=== PATIENT | female | born 1950 | race African-American/Black ===

== ENCOUNTER 2016-11-09 15:47 | Inpatient (IN) | payer MEDICARE, OTHER ==
[~2016-11-09] VITALS: Ht 172.7 cm; Wt 132.5 kg
[~2016-11-09 15:47] MED LIST: ALLO100T PO; AMLO10TA2 PO; ASPI-482 PO; CARV25TA2 PO; CETI10TA22 PO; DIPH25CA58 PO; EPOE20002 IJ; FURO20TA3 PO; INSU100V31 SQ; INSU100V8 SQ; LEVO137T2 PO; LOSA100T6 PO; OMEP20TA PO; PHEN100C PO; PHEN30CA PO
--- NOTE | 2016-11-09 16:21 | ED.ADGEN ---
Past Medical History Past Medical History: Diabetes-Type II, Renal Disease Alcohol Use: None Drug Use: None Adult General Chief Complaint Chief Complaint: ALTERED MENTAL STATUS HPI HPI Patient is a 66 year old -Indian insulin-dependent diabetes with end- stage renal disease with recent surgery of left forearm dialysis fistula with altered mental status. Patient's family member report patient's been confused with somnolence for the past 2 days. Symptoms started vaginally and have been progressive. Patient is not currently taking any of her home pain medications. She does not have a fever, cough, sore throat. She denies abdominal pain, urinary frequency urgency or dysuria. Denies headache, change in vision, dizziness or weakness or any strokelike symptom. Blood sugar checked by EMS or to arrival noted to be normal. Review of Systems Review of Systems ROS as per HPI. Current Medications Current Medications Current Medications Medications (Trade) Dose Ordered Sig/Jie Start Time Stop Time Status Last Admin Dose Admin Vancomycin HCl 1.25 gm/Sodium Chloride 250 ml @ 166.667 mls/hr 1X ONCE 11/09/16 18:15 11/09/16 18:26 DC Allergies Allergies Allergies Coded Allergies Type Severity Reaction Last Updated Verified Penicillins Allergy Intermediate 04/16/16 Yes Sulfa (Sulfonamide Antibiotics) Allergy Intermediate 04/16/16 Yes adhesive tape Allergy Intermediate 11/09/16 Yes codeine Allergy Intermediate 04/16/16 Yes doxycycline Allergy Intermediate 04/16/16 Yes Physical Exam Physical Exam Constitutional: Well developed, well nourished, no acute distress, non-toxic appearance. HENT: Normocephalic, atraumatic, bilateral external ears normal, oropharynx moist, no oral exudates, nose normal. Eyes: PERRL. Neck: Normal range of motion, no tenderness, supple. Cardiovascular:Heart rate regular rhythm, no murmur. Lungs & Thorax: Bilateral breath sounds clear to auscultation . Abdomen: Bowel sounds normal, soft, no tenderness. Skin: Warm, dry, appropriate for ethnicity. Back: No tenderness, no CVA tenderness. Extremities: Left forearm dialysis fistula surgical incision with light erythema and swelling surrounding surgical wound. Sutures are clean dry and intact. Neurologic: Alert and oriented X 2, normal motor function, normal sensory function, no focal deficits noted. Psychologic: Affect normal, judgement normal, mood normal. Current Patient Data Vital Signs Vital Signs Date Time Temp Pulse Resp B/P (MAP) Pulse Ox O2 Delivery O2 Flow Rate FiO2 11/09/16 17:44 72 20 184/79 (114) 95 Room Air 11/09/16 15:47 99.0 99.0 Lab Values Laboratory Tests Test 11/09/16 16:34 11/09/16 16:40 11/09/16 16:51 White Blood Count 7.4 x10^3/uL (4.0-11.0) Red Blood Count 2.76 x10^6/uL (3.50-5.40) L Hemoglobin 9.4 g/dL (12.0-15.5) L Hematocrit 29.6 % (36.0-47.0) L Mean Corpuscular Volume 107 fL (79-100) H Mean Corpuscular Hemoglobin 34 pg (25-35) Mean Corpuscular Hemoglobin Concent 32 g/dL (31-37) Red Cell Distribution Width 18.7 % (11.5-14.5) H Platelet Count 166 x10^3/uL (140-400) Neutrophils (%) (Auto) 68 % (31-73) Lymphocytes (%) (Auto) 17 % (24-48) L Monocytes (%) (Auto) 13 % (0-9) H Eosinophils (%) (Auto) 2 % (0-3) Basophils (%) (Auto) 1 % (0-3) Neutrophils # (Auto) 5.0 x10^3uL (1.8-7.7) Lymphocytes # (Auto) 1.2 x10^3/uL (1.0-4.8) Monocytes # (Auto) 0.9 x10^3/uL (0.0-1.1) Eosinophils # (Auto) 0.2 x10^3/uL (0.0-0.7) Basophils # (Auto) 0.0 x10^3/uL (0.0-0.2) Sodium Level 144 mmol/L (136-145) Potassium Level 5.0 mmol/L (3.5-5.1) Chloride Level 109 mmol/L (98-107) H Carbon Dioxide Level 21 mmol/L (21-32) Anion Gap 14 (6-14) Blood Urea Nitrogen 73 mg/dL (7-20) H Creatinine 4.4 mg/dL (0.6-1.0) H Estimated GFR (Cockcroft-Gault) 12.1 BUN/Creatinine Ratio 17 (6-20) Glucose Level 124 mg/dL (70-99) H Calcium Level 10.3 mg/dL (8.5-10.1) H Total Bilirubin 0.5 mg/dL (0.2-1.0) Aspartate Amino Transferase (AST) 25 U/L (15-37) Alanine Aminotransferase (ALT) 22 U/L (14-59) Alkaline Phosphatase 83 U/L (46-116) Ammonia 11 mcmol/L (11-34) Total Protein 7.3 g/dL (6.4-8.2) Albumin 3.0 g/dL (3.4-5.0) L Albumin/Globulin Ratio 0.7 (1.0-1.7) L O2 Saturation 92 % (92-99) Arterial Blood pH 7.31 (7.35-7.45) L Arterial Blood pCO2 at Patient Temp 39 mmHg (35-46) Arterial Blood pO2 at Patient Temp 68 mmHg (65-108) Arterial Blood HCO3 19 mmol/L (21-28) L Arterial Blood Base Excess -7 mmol/L (-3-3) L FiO2 21 Urine Collection Type U cath Urine Color Yellow Urine Clarity Cloudy Urine pH 5.5 Urine Specific Crozier 1.010 Urine Protein 30 mg/dL (NEG-TRACE) Urine Glucose (UA) Negative mg/dL (NEG) Urine Ketones (Stick) Negative mg/dL (NEG) Urine Blood Negative (NEG) Urine Nitrite Negative (NEG) Urine Bilirubin Negative (NEG) Urine Urobilinogen Dipstick 0.2 mg/dL (0.2 mg/dL) Urine Leukocyte Esterase Trace (NEG) Urine RBC Occ /HPF (0-2) Urine WBC 1-4 /HPF (0-4) Urine Squamous Epithelial Cells Mod /LPF Urine Amorphous Sediment Present /HPF Urine Bacteria 0 /HPF (0-FEW) Urine Mucus Slight /LPF Laboratory Tests 11/09/16 16:34 Laboratory Tests 11/09/16 16:34 EKG EKG [EKG: Sinus rhythm] Radiology/Procedures Radiology/Procedures [CT head: No acute disease X-ray: Cardiomegaly] Impressions: Altered mental status etiology unclear. No focal neurologic deficits. Patient with low-grade fever and possible early cellulitis of left fistula surgical wound. Concern for possible early sepsis. Course & Med Decision Making Course & Med Decision Making Pertinent Labs and Imaging studies reviewed. (See chart for details) [Case reviewed with Dr. Connor Bragg in detail. Recommendations are. Antibiotics, admission, vascular surgery and nephrology consult.] Dragon Disclaimer Dragon Disclaimer This electronic medical record was generated, in whole or in part, using a voice recognition dictation system. ABIMAEL NEVILLE DO November 09, 2016 16:21
--- NOTE | 2016-11-09 16:28 | RAD ---
Exam performed: CT scan of the head without contrast. Date of Service: 10/10/16. Comparison: None available. Clinical History: Altered mental status, poor historian. Technique: Helical acquisitions are obtained from the foramen magnum to the vertex without intravenous administration of contrast. Findings: The ventricles are midline without evidence of dilatation. Normal zamora-white differentiation is maintained. There is no extra axial fluid collection, intraparenchymal hemorrhage or mass lesion. The visualized portions of the orbits, paranasal sinuses and the mastoid air cells appear clear. The calvarium is intact. Impression: 1. No acute intracranial process detected. PQRS Compliance Statement: One or more of the following individualized dose reduction techniques were utilized for this examination: 1. Automated exposure control 2. Adjustment of the mA and/or kV according to patient size 3. Use of iterative reconstruction technique
--- NOTE | 2016-11-09 16:32 | RAD ---
Exam performed: One view chest. Indication: shortness of air today Date of Service: 11/09/2016 5:51 PM Comparison: Two-view chest from 05/02/09 Single AP upright portable view chest findings: Cardiomediastinal silhouette is mildly enlarged. Pulmonary vascularity is unremarkable. No acute infiltrates, effusion or pneumothorax is detected. The bony structures are normal. Impression: Mild cardiomegaly, otherwise unremarkable exam
[2016-11-09 16:48] LABS: BASO % 1 % (0-3); EOS % 2 % (0-3); HEMATOCRIT 29.6 % (36.0-47.0); HEMOGLOBIN 9.4 g/dL (12.0-15.5); LYMPH # 1.2 x10^3/uL (1.0-4.8); LYMPH % 17 % (24-48); MEAN CORPUSCULAR HEMOGLOBIN 34 pg (25-35); MEAN CORPUSCULAR HGB CONC 32 g/dL (31-37); MEAN CORPUSCULAR VOLUME 107 fL (79-100); MONO % 13 % (0-9); NEUT % 68 % (31-73); PLATELET COUNT 166 x10^3/uL (140-400); RED BLOOD COUNT 2.76 x10^6/uL (3.50-5.40); RED CELL DISTRIBUTION WIDTH 18.7 % (11.5-14.5); WHITE BLOOD COUNT 7.4 x10^3/uL (4.0-11.0)
[2016-11-09 16:50] LABS: FIO2 ABG 21; HCO3 ABG 19 mmol/L (21-28); PCO2 ABG 39 mmHg (35-46); PH ABG 7.31 (7.35-7.45); PO2 ABG 68 mmHg (65-108); SAT O2 ABG 92 % (92-99)
[2016-11-09 17:00] LABS: BILIRUBIN,URINE NEGATIVE (NEG); GLUCOSE,URINE NEGATIVE (NEG); NITRITE,URINE NEGATIVE (NEG); PH,URINE 5.5; PROTEIN,URINE 30 mg/dL (NEG-TRACE); UROBILINOGEN,URINE 0.2 mg/dL (0.2 mg/dL)
[2016-11-09 17:07] LABS: BACTERIA,URINE 0 /HPF (0-FEW); RBC,URINE OCC /HPF (0-2); SQUAMOUS EPITHELIAL CELL,UR MOD /LPF
[2016-11-09 17:14] LABS: CALCIUM 10.3 mg/dL (8.5-10.1); CREATININE 4.4 mg/dL (0.6-1.0); GFR 12.1
[2016-11-09 17:20] LABS: ALBUMIN/GLOBULIN RATIO 0.7 (1.0-1.7); TOTAL BILIRUBIN 0.5 mg/dL (0.2-1.0); TOTAL PROTEIN 7.3 g/dL (6.4-8.2)
--- NOTE | 2016-11-09 17:31 | EKG ---
[facility] [address] [place] [address] Test Date: 2016-11-09 Test Time: 16:33:45 Pat Name: ESPERANZA SALAMANCA Department: Room: Gender: Female Environmental Management Specialist: : [id number] Requested By: ABIMAEL NEVILLE Order Number: [id number] Reading MD: Manny Ace Measurements Intervals [place] Rate: 73 P: 27 KS: 152 QRS: 8 QRSD: 84 T: 28 QT: 374 QTc: 416 Interpretive Statements SINUS RHYTHM Electronically Signed On 11-16-2016 8:59:03 CDT by Manny Ace
--- NOTE | 2016-11-09 18:08 | ACF ---
Admission Forms Criteria MENTAL STATUS CHANGE Clinical Indications for Inpatient Care (Place 'X' for any and all applicable criteria): Ongoing inpatient care may be needed for 1 or more of the following(1)(2)(3)(5)( 6): [X]I. Suspected serious etiology (eg, medical disorder, FIRE INFORMATION OFFICER event) of altered mental status [ ]II. Danger to self or others not manageable at lower level of care [ ]III. Grave disability (eg, inability to perform self care necessary at lower level of care) [ ]IV. Agitation or inappropriate behavior interfering with care for primary condition (eg, attempting to discontinue lines or drains prematurely, unable to cooperate with respiratory care) [ ]V. Delirium [A] [D][E] as described by 1 or more of the following(26): [ ]a) Delirium due to alcohol or sedative [F] withdrawal [ ]b) Delirium of uncertain etiology that has not responded to appropriate empiric treatment [ ]c) Delirium that prevents performance of a life-sustaining function (eg, feeding or hydrating oneself) [ ]. General contraindications and/or Inappropriate clinical situations for Observational Care in patients with Mental Status Change, when ANY ONE of the following is required: [ ]a) Prediction of prolongation of LOS based on ANY ONE of the following may be considered as a contraindication for observational care 2, 3, 4, 5, 6, 7, 8, 9, 10, 11 [ ]i) Age > 65 yrs. [ ]ii) Patient arriving by ambulance [ ]iii) Patient with high acuity [ ]iv) Patient requiring vital sign monitoring [ ]v) Patient on IV medication [ ]b) Systolic blood pressures greater than or equal to 180mmHg 3, 12 [ ]c) Patient with altered mental status including delirium and other alteration of consciousness, (3) [ ]d) Patient whose discharge disposition will be to a [facility]ci home or rehabilitation home should not be managed in Emergency Department Observation Unit. CMS rule requires 3 days hospital stay before such placement.3,13 [ ]e) Patient with failure to thrive due to broad array of etiologies 3,16,17 [ ]f) Inability to ambulate 3,14 Extended stay beyond goal length of stay for the primary condition may be needed until ALL of the following are present(3)(5): [ ]a) Underlying medical etiology of mental status change is absent, or has been established and adequately treated [ ]b) Danger to self or others is absent or manageable at lower level of care. [ ]c) Behavior crisis management, including physical or chemical restraints, is not required or available at lower level of car [ ]d) Substance or alcohol withdrawal is absent or manageable at lower level of care. [ ]e) Behavioral symptoms (eg, agitation, somnolence, inappropriate behavior) are absent, or are manageable at lower level of care. The original [facility] content created by [facility] [employer] has been revised. The portions of the content which have been revised are identified through the use of italic text or in bold, and [facility] has neither reviewed nor approved the modified material. All other unmodified content is copyright [facility]. Please see references footnoted in the original [facility] edition 2016 Admission Criteria Met?: Yes FORREST CHAPIN November 09, 2016 18:08
[2016-11-09] MEDS ORDERED: VANCOMYCIN 1.25 GM in IV NORMAL SALINE 250ML 250 ML IV ONE (18:15)
[2016-11-09] MEDS ORDERED: VANCOMYCIN 2 GM in IV NORMAL SALINE 500ML BAG 500 ML IV ONE (19:00)
[2016-11-09 20:00] VITALS: BP 183/76
[2016-11-09] MEDS ORDERED: PHEN100C PO ×2 (22:01)
[2016-11-09] MEDS ORDERED: OXYC-323 PO (22:01)
[2016-11-09] MEDS ORDERED: LEVO137T3 PO (22:01)
[2016-11-09] MEDS ORDERED: HYDR-2868 PO (22:01)
[2016-11-09] MEDS ORDERED: PARI1CAP PO (22:01)
[2016-11-09] MEDS ORDERED: METO10TA81 PO (22:01)
[2016-11-09] MEDS ORDERED: INSU100I13 SQ (22:01)
[2016-11-09] MEDS ORDERED: INSU100C4 SQ (22:01)
[2016-11-09] MEDS ORDERED: OMEP20CA9 PO (22:01)
[2016-11-09] MEDS ORDERED: MULT-208 PO (22:01)
[2016-11-09] MEDS ORDERED: INSU100I11 SQ (22:01)
[2016-11-09] MEDS ORDERED: oxyCODONE/APAP 5/325 1 TAB TABLET PO SCH (22:15)
[2016-11-09] MEDS ORDERED: oxyCODONE/APAP 5/325 1 TAB TABLET PO PRN (22:30)
[2016-11-09] MEDS: INSULIN DETEMIR 300 UNITS/3 ML INSULN.PEN. SQ SCH (22:30)
[2016-11-09 23:00] VITALS: BP 191/71
[2016-11-10 03:00] VITALS: BP 195/73
[2016-11-10 06:14] LABS: BASO % 0 % (0-3); EOS % 2 % (0-3); HEMATOCRIT 27.5 % (36.0-47.0); HEMOGLOBIN 9.2 g/dL (12.0-15.5); LYMPH # 1.3 x10^3/uL (1.0-4.8); LYMPH % 17 % (24-48); MEAN CORPUSCULAR HEMOGLOBIN 35 pg (25-35); MEAN CORPUSCULAR HGB CONC 34 g/dL (31-37); MEAN CORPUSCULAR VOLUME 106 fL (79-100); MONO % 15 % (0-9); NEUT % 66 % (31-73); PLATELET COUNT 156 x10^3/uL (140-400); RED CELL DISTRIBUTION WIDTH 18.2 % (11.5-14.5); WHITE BLOOD COUNT 7.6 x10^3/uL (4.0-11.0)
[2016-11-10 06:35] LABS: CALCIUM 9.6 mg/dL (8.5-10.1); CREATININE 4.1 mg/dL (0.6-1.0); GFR 13.1; POTASSIUM 4.7 mmol/L (3.5-5.1)
[2016-11-10 07:00] VITALS: BP 119/56
[2016-11-10] MEDS: PHENYTOIN SODIUM EXTENDED 100 MG CAPSULE PO SCH ×2 (07:13→11:30)
[2016-11-10] MEDS: LEVOTHYROXINE 137 MCG TABLET PO SCH (07:13)
[2016-11-10] MEDS ORDERED: NON FORMULARY ITEM (Insulin Lispro (Humalog) 10 UNIT) SQ SCH (07:30)
[2016-11-10] MEDS ORDERED: INSULIN ASPART 300 UNITS/3 ML INSULN.PEN SQ SCH (07:30)
[2016-11-10] MEDS: CARVEDILOL 12.5 MG TABLET. PO SCH ×2 (08:00→16:52)
[2016-11-10] MEDS: CETIRIZINE HCL 10 MG TABLET. PO SCH (08:44)
[2016-11-10] MEDS: PARICALCITOL 1 MCG CAPSULE PO SCH (08:44)
[2016-11-10] MEDS: PANTOPRAZOLE 40 MG TABLET.DR. PO SCH (08:44)
[2016-11-10] MEDS: ASPIRIN ENTERIC COATED 81 MG TABLET.DR. PO SCH (08:44)
[2016-11-10] MEDS: FUROSEMIDE 20 MG TABLET PO SCH (08:44)
[2016-11-10] MEDS: MULTIVITAMIN with MINERAL TABLET. PO SCH ×2 (08:44→09:00)
[2016-11-10] MEDS ORDERED: DEXTROSE 50% 25 GM / 50ML DISP.SYRIN. IV PRN (08:45)
[2016-11-10] MEDS: amLODIPine BESYLATE 10 MG TABLET PO SCH (08:46)
[2016-11-10] MEDS: ALLOPURINOL 100 MG TABLET. PO SCH (08:46)
--- NOTE | 2016-11-10 08:47 | PDOC ---
Provider Note Provider Note [id number] JABIER LEIGH MD November 10, 2016 08:47
[2016-11-10] MEDS ORDERED: diphenhydrAMINE HCL 25 MG CAPSULE PO SCH (09:00)
[2016-11-10] MEDS: hydrALAZINE 25 MG TABLET PO SCH ×2 (09:00→22:41)
[2016-11-10] MEDS ORDERED: ALLOPURINOL 100 MG TABLET. PO SCH (09:00)
--- NOTE | 2016-11-10 09:12 | HP ---
ADMIT DATE: 11/09/2016 CHIEF COMPLAINT: Confusion. HISTORY OF PRESENT ILLNESS: This is a 66-year-old black female who had a large left upper arm AV shunt procedure done about 5 days ago at [facility] by Dr. Fiona Barkley. In the last day or so she has been noted to be more confused at home without any focal specific signs or symptoms. ER evaluation was unremarkable. CT scan of the head as well as lab work was normal and she was given a single dose of vancomycin as ____ possible relationship to wound infection. She has no complaints at this time. PAST MEDICAL HISTORY: MEDICATIONS: All meds noted per the chart. ALLERGIES: SULFA AND PENICILLINS. She is preparing for dialysis under the care of Dr. Green. She is an insulin-dependent diabetic, well controlled, last A1c was about June and to my knowledge was around 7.2. SOCIAL HISTORY: Nonsmoker. , lives with family. FAMILY HISTORY: Unremarkable. REVIEW OF SYSTEMS: Unremarkable. OBJECTIVE: ENT: All within normal limits. NECK: No nodes, masses, or bruits. LUNGS: Clear, no tachypnea. CARDIOVASCULAR: Regular rate. No irregular beat or murmur. EXTREMITIES: She has a clean-looking large left upper extremity incision. There is some tenderness medially with no overt drainage or redness. Lower extremities normal, pedal pulses diminished. NEUROLOGIC: She is sluggish and responsive. She knows my name, moves all extremities well, not able to respond to the question of date or time, but knows she is at [facility]. Gait was not tested. No tremors are noted. GENITOURINARY AND RECTAL: Deferred. ASSESSMENT: Confusional state about 5 days after a vascular surgery for shunt procedure. My main concern would be sepsis after the wound as there is no other obvious source of infection or vascular signs. PLAN: Await blood cultures and appropriate consultants and further symptoms as the dose of vancomycin will cover her for about the next 48 hours pending cultures. JABIER LEIGH MD DR: ALENA/wing JOB#: [id number] / [id number]
--- NOTE | 2016-11-10 09:43 | PDOC2 ---
CONSULT Date of Consult Date of Consult DATE: 11/10/16 TIME: 09:29 Reason for Consult Reason for Consult: Cellulitis left arm arm Referring Physician Referring Physician: Dr. Bragg Identification/Chief Complaint Chief Complaint mental status changes Source Source: Caregiver, Patient History of Present Illness Reason for Visit: Ms. Cohn is a 66 y/o female with HTN, ESRD that was admitted for mental status changes. She recently had a left upper arm basilic vein transposition by Dr. Barkley last week. The family states she had pain after the surgery, and has been taking percocet that has increased her confusion. She has episodes of confusion and not responding appropriately. She denies any focal areas of weakness, numbness, visual changes, or slurred speech. She does complain of weakness to the right hand, but her sensation is intact and denies any numbness. She had a CT head in the ED that was negative for any acute intracranial process, a chest x-ray that was negative for pneumonia, and a UA that was negative. After the surgery there initially was some bruising, and now mild residual redness. No opening in the wound or drainage. She denies any fevers. Past Medical History Cardiovascular: HTN Renal/: Chronic renal insuff Past Surgical History Past Surgical History: Other (left arm fistula) Current Problem List Problem List Problems Medical Problems: (1) Altered mental status Status: Acute Current Medications Current Medications Current Medications Vancomycin HCl 1.25 gm/Sodium Chloride 250 ml @ 166.667 mls/hr 1X ONCE IV ; Start 11/09/16 at 18:15; Stop 11/09/16 at 18:26; Status DC Vancomycin HCl 2 gm/Sodium Chloride 500 ml @ 250 mls/hr 1X ONCE IV Last administered on 11/09/16 19:07; Start 11/09/16 at 19:00; Stop 11/09/16 at 20:59; Status DC Allopurinol (Zyloprim) 100 mg BID PO ; Start 11/10/16 at 09:00; Stop 11/10/16 at 09:00; Status DC Amlodipine Besylate (Norvasc) 10 mg DAILY PO Last administered on 11/10/16 08: 46; Start 11/10/16 at 09:00 Aspirin (Ecotrin) 81 mg DAILY PO Last administered on 11/10/16 08:44; Start 11/10/16 at 09:00 Cetirizine HCl (Zyrtec) 10 mg DAILY PO Last administered on 11/10/16 08:44; Start 11/10/16 at 09:00 Diphenhydramine HCl (Benadryl) 25 mg DAILY PO ; Start 11/10/16 at 09:00; Stop 11/10/16 at 09:00; Status DC Furosemide (Lasix) 20 mg DAILY PO Last administered on 11/10/16 08:44; Start at 09:00 Hydralazine HCl (Apresoline) 25 mg BID PO ; Start 11/10/16 at 09:00 Levothyroxine Sodium (Synthroid) 137 mcg DAILY07 PO Last administered on 07:13; Start 11/10/16 at 07:00 Metoclopramide HCl (Reglan) 5 mg HS PO ; Start 11/10/16 at 21:00 Oxycodone/ Acetaminophen (Percocet 5/325) 1 tab PRN Q4HRS PO ; Start 11/09/16 at 22:15; Stop 11/09/16 at 22:17; Status DC Paricalcitol (Zemplar) 1 mcg DAILY PO Last administered on 11/10/16 08:44; Start 11/10/16 at 09:00 Phenytoin Sodium (Dilantin) 100 mg BIDACBL PO Last administered on 11/10/16 07: 13; Start 11/10/16 at 07:30 Phenytoin Sodium (Dilantin) 30 mg HS PO ; Start 11/10/16 at 21:00 Carvedilol (Coreg) 25 mg BIDWMEALS PO ; Start 11/10/16 at 08:00 Darbepoetin Harish (Aranesp) 25 mcg WEEKLYHS SQ ; Start 11/11/16 at 21:00 Insulin Aspart (Novolog) 10 units TIDAC SQ ; Start 11/10/16 at 07:30; Stop at 08:44; Status DC Insulin Detemir (Levemir) 75 units QHS SQ ; Start 11/09/16 at 22:30 Non-Formulary Medication 10 unit TIDAC SQ ; Start 11/10/16 at 07:30; Status UNV Multivitamins (Thera M Plus) 1 tab DAILY PO Last administered on 11/10/16 08:44 ; Start 11/10/16 at 09:00 Pantoprazole Sodium (Protonix) 40 mg DAILYAC PO Last administered on 11/10/16 08:44; Start 11/10/16 at 09:00 Oxycodone/ Acetaminophen (Percocet 5/325) 2 tab PRN Q4HRS PRN PO PAIN; Start at 22:30 Oxycodone/ Acetaminophen (Percocet 5/325) 1 tab PRN Q4HRS PRN PO PAIN; Start at 22:30 Allopurinol (Zyloprim) 100 mg DAILY10 PO Last administered on 11/10/16 08:46; Start 11/10/16 at 10:00 Insulin Aspart (Novolog) 0-7 UNITS TIDWMEALS SQ ; Start 11/10/16 at 12:00 Dextrose (Dextrose 50%-Water Syringe) 12.5 gm PRN Q15MIN PRN IV SEE COMMENTS; Start 11/10/16 at 08:45 Active Scripts Active Reported Humalog (Insulin Lispro) 100 Unit/1 Ml Insuln.pen 10 Unit SQ TIDAC Lantus Solostar (Insulin Glargine,Hum.rec.anlog) 100 Unit/1 Ml Insuln.pen 75 Unit SQ QHS Dilantin (Phenytoin Sodium Extended) 100 Mg Capsule 30 Mg PO HS Dilantin (Phenytoin Sodium Extended) 100 Mg Capsule 1 Cap PO BIDACBL Zemplar (Paricalcitol) 1 Mcg Capsule 1 Mcg PO DAILY Omeprazole 20 Mg Capsule. 1 Cap PO DAILY Multi-Day Vitamins (Multivitamin) 1 Each Tablet 1 Tab PO DAILY Reglan (Metoclopramide Hcl) 10 Mg Tablet 0.5 Tab PO HS Levothyroxine Sodium 137 Mcg Tablet 1 Tab PO DAILY Novolog (Insulin Aspart) 100 Unit/1 Ml Cartridge 10 Unit SQ TIDAC Hydralazine Hcl 25 Mg Tablet 1 Tab PO BID Percocet 5-325 Mg Tablet (Oxycodone/Acetaminophen) 1 Each Tablet 1-2 Tab PO Q4- 6HRS Epogen (Epoetin Harish) 2,000 Unit/1 Ml Vial 2,000 Unit IJ WEEKLY Synthroid (Levothyroxine Sodium) 137 Mcg Tablet 1 Tab PO DAILY Zyrtec (Cetirizine Hcl) 10 Mg Tablet 1 Tab PO DAILY Benadryl (Diphenhydramine Hcl) 25 Mg Capsule 25 Mg PO DAILY Aspir 81 (Aspirin) 81 Mg Tablet.dr 81 Mg PO DAILY Allopurinol 100 Mg Tablet 100 Mg PO DAILY Carvedilol 25 Mg Tablet 25 Mg PO BIDWMEALS Omeprazole 20 Mg Tablet.dr 20 Mg PO DAILY Losartan Potassium 100 Mg Tablet 100 Mg PO DAILY Amlodipine Besylate 10 Mg Tablet 10 Mg PO DAILY Furosemide 20 Mg Tablet 20 Mg PO DAILY Novolog (Insulin Aspart) 100 Unit/1 Ml Vial 12 Unit SQ TIDAC Lantus (Insulin Glargine,Hum.rec.anlog) 100 Unit/1 Ml Vial 70 Unit SQ HS Dilantin (Phenytoin Sodium Extended) 100 Mg Capsule 200 Mg PO DAILY Dilantin (Phenytoin Sodium Extended) 30 Mg Capsule 60 Mg PO DAILY Allergies Allergies: Coded Allergies: Penicillins (Verified Allergy, Intermediate, 04/16/16) Sulfa (Sulfonamide Antibiotics) (Verified Allergy, Intermediate, 04/16/16) adhesive tape (Verified Allergy, Intermediate, 11/09/16) codeine (Verified Allergy, Intermediate, 04/16/16) doxycycline (Verified Allergy, Intermediate, 04/16/16) Physical Exam General: Alert, Oriented X3 HEENT: Atraumatic, EOMI Lungs: Clear to auscultation, Normal air movement Heart: Regular rate, Normal S1, Normal S2 Abdomen: Normal bowel sounds, Soft, No tenderness Skin: Other (Left upper arm: incision intact, no drainage, mild mike- incisional erythema. Papable left radial pulse. Palpable left thrill over the basilic vein. ) Neuro: Normal speech, Other (Left hand with weak rn spine and weak arm flexion / extension. RUE and b/l LE normal strength) Vitals VITALS Vital Signs Date Time Temp Pulse Resp B/P (MAP) Pulse Ox O2 Delivery O2 Flow Rate FiO2 11/10/16 08:46 78 119/56 11/10/16 07:00 98.1 19 98 Room Air 98.1 11/10/16 00:05 2.0 Labs Labs Laboratory Tests Test 11/09/16 16:34 11/09/16 16:40 11/09/16 16:51 11/09/16 22:23 White Blood Count 7.4 x10^3/uL (4.0-11.0) Red Blood Count 2.76 x10^6/uL (3.50-5.40) Hemoglobin 9.4 g/dL (12.0-15.5) Hematocrit 29.6 % (36.0-47.0) Mean Corpuscular Volume 107 fL (79-100) Mean Corpuscular Hemoglobin 34 pg (25-35) Mean Corpuscular Hemoglobin Concent 32 g/dL (31-37) Red Cell Distribution Width 18.7 % (11.5-14.5) Platelet Count 166 x10^3/uL (140-400) Neutrophils (%) (Auto) 68 % (31-73) Lymphocytes (%) (Auto) 17 % (24-48) Monocytes (%) (Auto) 13 % (0-9) Eosinophils (%) (Auto) 2 % (0-3) Basophils (%) (Auto) 1 % (0-3) Neutrophils # (Auto) 5.0 x10^3uL (1.8-7.7) Lymphocytes # (Auto) 1.2 x10^3/uL (1.0-4.8) Monocytes # (Auto) 0.9 x10^3/uL (0.0-1.1) Eosinophils # (Auto) 0.2 x10^3/uL (0.0-0.7) Basophils # (Auto) 0.0 x10^3/uL (0.0-0.2) Sodium Level 144 mmol/L (136-145) Potassium Level 5.0 mmol/L (3.5-5.1) Chloride Level 109 mmol/L (98-107) Carbon Dioxide Level 21 mmol/L (21-32) Anion Gap 14 (6-14) Blood Urea Nitrogen 73 mg/dL (7-20) Creatinine 4.4 mg/dL (0.6-1.0) Estimated GFR (Cockcroft-Gault) 12.1 BUN/Creatinine Ratio 17 (6-20) Glucose Level 124 mg/dL (70-99) Calcium Level 10.3 mg/dL (8.5-10.1) Total Bilirubin 0.5 mg/dL (0.2-1.0) Aspartate Amino Transf (AST/SGOT) 25 U/L (15-37) Alanine Aminotransferase (ALT/SGPT) 22 U/L (14-59) Alkaline Phosphatase 83 U/L (46-116) Ammonia 11 mcmol/L (11-34) Total Protein 7.3 g/dL (6.4-8.2) Albumin 3.0 g/dL (3.4-5.0) Albumin/Globulin Ratio 0.7 (1.0-1.7) O2 Saturation 92 % (92-99) Arterial Blood pH 7.31 (7.35-7.45) Arterial Blood pCO2 at Patient Temp 39 mmHg (35-46) Arterial Blood pO2 at Patient Temp 68 mmHg (65-108) Arterial Blood HCO3 19 mmol/L (21-28) Arterial Blood Base Excess -7 mmol/L (-3-3) FiO2 21 Urine Collection Type U cath Urine Color Yellow Urine Clarity Cloudy Urine pH 5.5 Urine Specific [place] 1.010 Urine Protein 30 mg/dL (NEG-TRACE) Urine Glucose (UA) Negative mg/dL (NEG) Urine Ketones (Stick) Negative mg/dL (NEG) Urine Blood Negative (NEG) Urine Nitrite Negative (NEG) Urine Bilirubin Negative (NEG) Urine Urobilinogen Dipstick 0.2 mg/dL (0.2 mg/dL) Urine Leukocyte Esterase Trace (NEG) Urine RBC Occ /HPF (0-2) Urine WBC 1-4 /HPF (0-4) Urine Squamous Epithelial Cells Mod /LPF Urine Amorphous Sediment Present /HPF Urine Bacteria 0 /HPF (0-FEW) Urine Mucus Slight /LPF Glucose (Fingerstick) 137 mg/dL (70-99) Test 11/10/16 05:50 11/10/16 07:38 White Blood Count 7.6 x10^3/uL (4.0-11.0) Red Blood Count 2.60 x10^6/uL (3.50-5.40) Hemoglobin 9.2 g/dL (12.0-15.5) Hematocrit 27.5 % (36.0-47.0) Mean Corpuscular Volume 106 fL (79-100) Mean Corpuscular Hemoglobin 35 pg (25-35) Mean Corpuscular Hemoglobin Concent 34 g/dL (31-37) Red Cell Distribution Width 18.2 % (11.5-14.5) Platelet Count 156 x10^3/uL (140-400) Neutrophils (%) (Auto) 66 % (31-73) Lymphocytes (%) (Auto) 17 % (24-48) Monocytes (%) (Auto) 15 % (0-9) Eosinophils (%) (Auto) 2 % (0-3) Basophils (%) (Auto) 0 % (0-3) Neutrophils # (Auto) 5.0 x10^3uL (1.8-7.7) Lymphocytes # (Auto) 1.3 x10^3/uL (1.0-4.8) Monocytes # (Auto) 1.1 x10^3/uL (0.0-1.1) Eosinophils # (Auto) 0.2 x10^3/uL (0.0-0.7) Basophils # (Auto) 0.0 x10^3/uL (0.0-0.2) Sodium Level 146 mmol/L (136-145) Potassium Level 4.7 mmol/L (3.5-5.1) Chloride Level 112 mmol/L (98-107) Carbon Dioxide Level 20 mmol/L (21-32) Anion Gap 14 (6-14) Blood Urea Nitrogen 69 mg/dL (7-20) Creatinine 4.1 mg/dL (0.6-1.0) Estimated GFR (Cockcroft-Gault) 13.1 Glucose Level 127 mg/dL (70-99) Calcium Level 9.6 mg/dL (8.5-10.1) Glucose (Fingerstick) 118 mg/dL (70-99) Laboratory Tests Test 11/09/16 16:34 11/09/16 16:40 11/09/16 16:51 11/09/16 22:23 White Blood Count 7.4 x10^3/uL (4.0-11.0) Red Blood Count 2.76 x10^6/uL (3.50-5.40) Hemoglobin 9.4 g/dL (12.0-15.5) Hematocrit 29.6 % (36.0-47.0) Mean Corpuscular Volume 107 fL (79-100) Mean Corpuscular Hemoglobin 34 pg (25-35) Mean Corpuscular Hemoglobin Concent 32 g/dL (31-37) Red Cell Distribution Width 18.7 % (11.5-14.5) Platelet Count 166 x10^3/uL (140-400) Neutrophils (%) (Auto) 68 % (31-73) Lymphocytes (%) (Auto) 17 % (24-48) Monocytes (%) (Auto) 13 % (0-9) Eosinophils (%) (Auto) 2 % (0-3) Basophils (%) (Auto) 1 % (0-3) Neutrophils # (Auto) 5.0 x10^3uL (1.8-7.7) Lymphocytes # (Auto) 1.2 x10^3/uL (1.0-4.8) Monocytes # (Auto) 0.9 x10^3/uL (0.0-1.1) Eosinophils # (Auto) 0.2 x10^3/uL (0.0-0.7) Basophils # (Auto) 0.0 x10^3/uL (0.0-0.2) Sodium Level 144 mmol/L (136-145) Potassium Level 5.0 mmol/L (3.5-5.1) Chloride Level 109 mmol/L (98-107) Carbon Dioxide Level 21 mmol/L (21-32) Anion Gap 14 (6-14) Blood Urea Nitrogen 73 mg/dL (7-20) Creatinine 4.4 mg/dL (0.6-1.0) Estimated GFR (Cockcroft-Gault) 12.1 BUN/Creatinine Ratio 17 (6-20) Glucose Level 124 mg/dL (70-99) Calcium Level 10.3 mg/dL (8.5-10.1) Total Bilirubin 0.5 mg/dL (0.2-1.0) Aspartate Amino Transf (AST/SGOT) 25 U/L (15-37) Alanine Aminotransferase (ALT/SGPT) 22 U/L (14-59) Alkaline Phosphatase 83 U/L (46-116) Ammonia 11 mcmol/L (11-34) Total Protein 7.3 g/dL (6.4-8.2) Albumin 3.0 g/dL (3.4-5.0) Albumin/Globulin Ratio 0.7 (1.0-1.7) O2 Saturation 92 % (92-99) Arterial Blood pH 7.31 (7.35-7.45) Arterial Blood pCO2 at Patient Temp 39 mmHg (35-46) Arterial Blood pO2 at Patient Temp 68 mmHg (65-108) Arterial Blood HCO3 19 mmol/L (21-28) Arterial Blood Base Excess -7 mmol/L (-3-3) FiO2 21 Urine Collection Type U cath Urine Color Yellow Urine Clarity Cloudy Urine pH 5.5 Urine Specific [place] 1.010 Urine Protein 30 mg/dL (NEG-TRACE) Urine Glucose (UA) Negative mg/dL (NEG) Urine Ketones (Stick) Negative mg/dL (NEG) Urine Blood Negative (NEG) Urine Nitrite Negative (NEG) Urine Bilirubin Negative (NEG) Urine Urobilinogen Dipstick 0.2 mg/dL (0.2 mg/dL) Urine Leukocyte Esterase Trace (NEG) Urine RBC Occ /HPF (0-2) Urine WBC 1-4 /HPF (0-4) Urine Squamous Epithelial Cells Mod /LPF Urine Amorphous Sediment Present /HPF Urine Bacteria 0 /HPF (0-FEW) Urine Mucus Slight /LPF Glucose (Fingerstick) 137 mg/dL (70-99) Test 11/10/16 05:50 11/10/16 07:38 White Blood Count 7.6 x10^3/uL (4.0-11.0) Red Blood Count 2.60 x10^6/uL (3.50-5.40) Hemoglobin 9.2 g/dL (12.0-15.5) Hematocrit 27.5 % (36.0-47.0) Mean Corpuscular Volume 106 fL (79-100) Mean Corpuscular Hemoglobin 35 pg (25-35) Mean Corpuscular Hemoglobin Concent 34 g/dL (31-37) Red Cell Distribution Width 18.2 % (11.5-14.5) Platelet Count 156 x10^3/uL (140-400) Neutrophils (%) (Auto) 66 % (31-73) Lymphocytes (%) (Auto) 17 % (24-48) Monocytes (%) (Auto) 15 % (0-9) Eosinophils (%) (Auto) 2 % (0-3) Basophils (%) (Auto) 0 % (0-3) Neutrophils # (Auto) 5.0 x10^3uL (1.8-7.7) Lymphocytes # (Auto) 1.3 x10^3/uL (1.0-4.8) Monocytes # (Auto) 1.1 x10^3/uL (0.0-1.1) Eosinophils # (Auto) 0.2 x10^3/uL (0.0-0.7) Basophils # (Auto) 0.0 x10^3/uL (0.0-0.2) Sodium Level 146 mmol/L (136-145) Potassium Level 4.7 mmol/L (3.5-5.1) Chloride Level 112 mmol/L (98-107) Carbon Dioxide Level 20 mmol/L (21-32) Anion Gap 14 (6-14) Blood Urea Nitrogen 69 mg/dL (7-20) Creatinine 4.1 mg/dL (0.6-1.0) Estimated GFR (Cockcroft-Gault) 13.1 Glucose Level 127 mg/dL (70-99) Calcium Level 9.6 mg/dL (8.5-10.1) Glucose (Fingerstick) 118 mg/dL (70-99) Images Images CT head 11/09: no acute intracranial process Chest X-Ray: mild cardiomegaly Assessment/Plan Assessment/Plan 66 y/o w/ chronic renal insufficiency s/p L basilic vein transposition (last week) with mental status changes The labs and images were reviewed: and she does not have leukocytosis, UA negative, CXR negative, and the CT Head was negative for acute intracranial process. The left arm has some mild erythema, but the wound is intact and without any drainage. Per the family, there was some bruising around the incisional site that has resolved. She received a dose of Vancomycin, and blood cultures are pending. She may have cellulitis of the left upper arm, and would recommend to continue oral keflex for cellulitis. She does not have a prosthetic graft. Her left hand has some weakness, but this has not been getting progressively worse after the surgery. She has a palpable left radial pulse. Will plan to continue to follow the patient, and she will follow-up as an outpatient with Dr. Barkley. DANILO FARRELL MD November 10, 2016 09:43
[2016-11-10 11:00] VITALS: BP 187/70
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
[2016-11-10] MEDS: INSULIN ASPART 300 UNITS/3 ML INSULN.PEN SQ SCH ×2 (12:00→16:46)
[2016-11-10 13:03] LABS: INR 1.3 (0.8-1.1)
[2016-11-10 15:00] VITALS: BP 188/67
[2016-11-10 19:00] VITALS: BP 130/45
[2016-11-10] MEDS: INSULIN DETEMIR 300 UNITS/3 ML INSULN.PEN. SQ SCH (21:00)
[2016-11-10] MEDS ORDERED: PHENYTOIN SODIUM EXTENDED 100 MG CAPSULE PO SCH (21:00)
[2016-11-10] MEDS ORDERED: IBUPROFEN 400 MG TABLET. PO PRN (22:00)
[2016-11-10] MEDS: METOCLOPRAMIDE 5 MG TABLET. PO SCH (22:41)
[2016-11-10] MEDS: PHENYTOIN SODIUM EXTENDED 30 MG CAPSULE. PO SCH (22:41)
[2016-11-10 23:00] VITALS: BP 106/59
[2016-11-11 03:00] VITALS: BP 185/60
[2016-11-11] MEDS: PANTOPRAZOLE 40 MG TABLET.DR. PO SCH (06:28)
[2016-11-11] MEDS: LEVOTHYROXINE 137 MCG TABLET PO SCH (06:28)
[2016-11-11] MEDS: PHENYTOIN SODIUM EXTENDED 100 MG CAPSULE PO SCH ×2 (06:29→11:30)
[2016-11-11 07:35] VITALS: BP 195/71
[2016-11-11 07:50] LABS: HEMATOCRIT 28.5 % (36.0-47.0); HEMOGLOBIN 9.4 g/dL (12.0-15.5); RED BLOOD COUNT 2.71 x10^6/uL (3.50-5.40); WHITE BLOOD COUNT 7.3 x10^3/uL (4.0-11.0)
[2016-11-11] MEDS: INSULIN ASPART 300 UNITS/3 ML INSULN.PEN SQ SCH ×3 (08:00→17:00)
[2016-11-11] MEDS ORDERED: HEPARIN for IV BOLUS 10,000 UNIT/10 ML VIAL. ONE ×2 (08:16→13:49)
[2016-11-11] MEDS ORDERED: LIDOCAINE 1%/EPI 1:100,000 20 ML VIAL. ONE ×2 (08:16→13:49)
--- NOTE | 2016-11-11 08:19 | PDOC ---
Provider Note Provider Note vss, no temp- still sleepy but oriented- cults neg- d/w family, no need for antibiotics at present, ms should clear w/ dialysis JABIER LEIGH MD November 11, 2016 08:19
[2016-11-11 08:23] LABS: ALBUMIN 2.7 g/dL (3.4-5.0); CALCIUM 10.1 mg/dL (8.5-10.1); CREATININE 3.8 mg/dL (0.6-1.0); DIRECT BILIRUBIN 0.2 mg/dL (0.0-0.2); GFR 14.3; POTASSIUM 4.7 mmol/L (3.5-5.1); TOTAL BILIRUBIN 0.4 mg/dL (0.2-1.0)
[2016-11-11] MEDS: amLODIPine BESYLATE 10 MG TABLET PO SCH (08:29)
[2016-11-11] MEDS: CARVEDILOL 12.5 MG TABLET. PO SCH ×2 (08:29→17:00)
[2016-11-11] MEDS: hydrALAZINE 25 MG TABLET PO SCH ×2 (08:30→20:51)
[2016-11-11 08:32] LABS: HEP B SURFACE ABDY Reactive (.)
[2016-11-11] MEDS: FUROSEMIDE 20 MG TABLET PO SCH (09:00)
[2016-11-11] MEDS: PARICALCITOL 1 MCG CAPSULE PO SCH (09:00)
[2016-11-11] MEDS: ASPIRIN ENTERIC COATED 81 MG TABLET.DR. PO SCH (09:00)
[2016-11-11] MEDS: MULTIVITAMIN with MINERAL TABLET. PO SCH (09:00)
[2016-11-11] MEDS: CETIRIZINE HCL 10 MG TABLET. PO SCH (09:00)
[2016-11-11] MEDS: ALLOPURINOL 100 MG TABLET. PO SCH (10:00)
--- NOTE | 2016-11-11 11:34 | PDOC ---
Renal-Progress Notes Subjective Notes Notes EASILY AROUSABLE BUT SOMNOLENT History of Present Illness Hx of present illness STABLE Vitals Vitals Vital Signs Date Time Temp Pulse Resp B/P (MAP) Pulse Ox O2 Delivery O2 Flow Rate FiO2 11/11/16 08:30 80 195/71 11/11/16 08:00 Room Air 2.0 11/11/16 07:35 97.7 18 93 97.7 Weight Weight [ ] I.O. Intake and Output Intake and Output 11/11/16 06:59 Intake Total 810 ml Output Total 225 ml Balance 585 ml Intake Oral 810 ml Output Urine Total 225 ml # Voids 4 Labs Labs Laboratory Tests Test 11/10/16 12:30 11/10/16 16:41 11/10/16 20:59 11/11/16 06:20 Prothrombin Time 15.0 SEC (11.7-14.0) Prothromb Time International Ratio 1.3 (0.8-1.1) Hepatitis B Surface Antigen Negative (Negative) Hepatitis B Surface Antibody Reactive (.) Glucose (Fingerstick) 137 mg/dL (70-99) 134 mg/dL (70-99) White Blood Count 7.3 x10^3/uL (4.0-11.0) Red Blood Count 2.71 x10^6/uL (3.50-5.40) Hemoglobin 9.4 g/dL (12.0-15.5) Hematocrit 28.5 % (36.0-47.0) Mean Corpuscular Volume 105 fL (79-100) Mean Corpuscular Hemoglobin 35 pg (25-35) Mean Corpuscular Hemoglobin Concent 33 g/dL (31-37) Red Cell Distribution Width 18.0 % (11.5-14.5) Platelet Count 161 x10^3/uL (140-400) Sodium Level 145 mmol/L (136-145) Potassium Level 4.7 mmol/L (3.5-5.1) Chloride Level 111 mmol/L (98-107) Carbon Dioxide Level 20 mmol/L (21-32) Anion Gap 14 (6-14) Blood Urea Nitrogen 70 mg/dL (7-20) Creatinine 3.8 mg/dL (0.6-1.0) Estimated GFR (Cockcroft-Gault) 14.3 Glucose Level 123 mg/dL (70-99) Calcium Level 10.1 mg/dL (8.5-10.1) Total Bilirubin 0.4 mg/dL (0.2-1.0) Direct Bilirubin 0.2 mg/dL (0.0-0.2) Aspartate Amino Transf (AST/SGOT) 25 U/L (15-37) Alanine Aminotransferase (ALT/SGPT) 24 U/L (14-59) Alkaline Phosphatase 82 U/L (46-116) Total Protein 7.0 g/dL (6.4-8.2) Albumin 2.7 g/dL (3.4-5.0) Test 11/11/16 07:36 Glucose (Fingerstick) 124 mg/dL (70-99) Micro Micro Microbiology 11/09/16 Blood Culture - Preliminary, Resulted NO GROWTH AFTER 1 DAY 11/09/16 Urine Culture - Preliminary, Resulted 11/09/16 Urine Culture Result 1 (STEPHANIE) - Preliminary, Resulted Review of Systems Constitutional: yes: weakness Ears/Nose/Throat: Yes: no symptom reported Eyes: Yes: no symptom reported Pulmonary: Yes no symptom reported Cardiovascular: Yes no symptom reported Gastrointestional: Yes: no symptom reported Psychiatric/Neurological: Yes: confusion, weakness Endocrine: Yes: no symptom reported Physical Exam General Appearance: no apparent distress Skin: warm Respiratory: bilateral CTA Heart: S1S2 Abdomen: soft, bowel sounds present Genitourinary: bladder flat Extremities: pulses present Neurology: alert, oriented Assessment Assessment IMP UREMIA ANEMIA ESRD PROB UREMIC RELATED ENCEPHALOPATHY HTN PLAN PLAN WAS FOR TUNNELED HD CATHETER TODAY PT HAS REFUSED IN IR LAB THIS AM SHE MAY WANT TO GO HOME EXPLAINED TO FAMILY THAT SOMNOLENCE IS MOST LIKELY DUE TO UREMIA SINCE THERE ARE NO OTHER EXPLANATIONS FAMILY ATTEMPTING TO CONVINCE PT MCKAYLA HITCHCOCK MD November 11, 2016 11:34
[2016-11-11] MEDS ORDERED: fentaNYL PF VIAL 250 MCG/5 ML VIAL ONE (13:48)
[2016-11-11] MEDS ORDERED: MIDAZOLAM HCL/PF 5 MG/5 ML VIAL. ONE (13:48)
[2016-11-11] MEDS ORDERED: CLINDAMYCIN 600MG PREMIX 50 ML IV ONE ×2 (13:52→14:15)
[2016-11-11] MEDS ORDERED: fentaNYL PF VIAL 250 MCG/5 ML VIAL IV ONE (14:00)
[2016-11-11] MEDS ORDERED: MIDAZOLAM HCL/PF 5 MG/5 ML VIAL. IV ONE (14:00)
[2016-11-11] MEDS ORDERED: HEPARIN for IV BOLUS 10,000 UNIT/10 ML VIAL. IART ONE (14:00)
[2016-11-11] MEDS ORDERED: LIDOCAINE 1%/EPI 1:100,000 20 ML VIAL. INJ ONE (14:00)
[2016-11-11] MEDS ORDERED: HEPARIN for IV BOLUS 10,000 UNIT/10 ML VIAL. IV ONE (14:15)
--- NOTE | 2016-11-11 14:34 | PDOC ---
MODERATE SEDATION ASSESSMENT RISKS/ALTERNATIVES Risks/Alternatives Risks and alternatives of this type of sedation and procedure discussed with: RISK/ALTERNATIVES: Sig. Other (Discussed with patient's sons.) H & P ON CHART H & P H & P on chart and reviewed for co-morbid conditions and appropriate labs. H&P ON CHART: Yes STATUS PREG STATUS ASSESSED: N/A MEDS/ALLERGIES REVIEWED Meds/Allergies Reviewed Medications and Allergies including time and route of recently administered narcotics and sedatives. MEDS/ALLERGIES REVIEWED: Yes ASA RATING ASA RATING: III AIRWAY ASSESSMENT Airway Assessment Airway patency, oral function limitations, presence of caps, crowns, dentures, partials, and ability to extend neck assessed. AIRWAY ASSESSMENT: Yes MALLAMPATI SCORE MALLAMPATI SCORE: III PRE-SEDATION ASSESSMENT PRE-SEDATION ASSESSMENT: Yes RAUDEL CHAN MD November 11, 2016 14:33
--- NOTE | 2016-11-11 14:38 | PDOC ---
Exam Recovery Room Nurse Recovery Room Nurse Chip Bank Teller Machine Mechanic Bank Teller Machine Mechanic B Cates Pre-Procedure Diagnosis Pre-Procedure Diagnosis 66 YO female with ESRD and with recently created, immature AVF. Needs HD. Tunneled HDC insertion requested by Renal. Post-Procedure Diagnosis Post-Procedure Diagnosis Same Procedure Performed Procedure Performed Sono/fluoro guided tunneled HDC insertion. Type of Anesthesia Type of Anesthesia Local + Mod sedation. Estimated Blood Loss EBL: Minimal Drain/Tubes Drains/Tubes Right IJ 15.5F 28cm DuraMax tunneled HDC. Condition of Patient Condition of Patient No change. No apparent complication. Disposition Disposition From IR return to [facility] for recovery. OK to use tunneled HDC now. F/u with Renal. Full report to follow. RAUDEL CHAN MD November 11, 2016 14:38
[2016-11-11] MEDS ORDERED: IV NORMAL SALINE 1000ML BAG 1,000 ML IV PRN (15:13)
[2016-11-11] MEDS ORDERED: DIALYSIS PATIENT. MC PRN ×2 (15:15)
[2016-11-11] MEDS: oxyCODONE/APAP 5/325 1 TAB TABLET PO PRN (16:11)
[2016-11-11 19:00] VITALS: BP 208/93
[2016-11-11] MEDS: PHENYTOIN SODIUM EXTENDED 30 MG CAPSULE. PO SCH (20:50)
[2016-11-11] MEDS: METOCLOPRAMIDE 5 MG TABLET. PO SCH (20:50)
[2016-11-11] MEDS ORDERED: DARBEPOETIN ALFA 25 MCG/0.42 ML DISP.SYRIN. SQ SCH (21:00)
[2016-11-11] MEDS: INSULIN DETEMIR 300 UNITS/3 ML INSULN.PEN. SQ SCH (21:00)
[2016-11-11 23:00] VITALS: BP 184/74
[2016-11-12 03:02] VITALS: BP 179/71
[2016-11-12] MEDS: LEVOTHYROXINE 137 MCG TABLET PO SCH (06:26)
[2016-11-12] MEDS: PHENYTOIN SODIUM EXTENDED 100 MG CAPSULE PO SCH ×2 (06:27→13:24)
[2016-11-12] MEDS: PANTOPRAZOLE 40 MG TABLET.DR. PO SCH (06:27)
[2016-11-12] MEDS ORDERED: IV NORMAL SALINE 1000ML BAG 1,000 ML IV PRN ×2 (06:55)
[2016-11-12 07:00] VITALS: BP 155/86
[2016-11-12] MEDS ORDERED: DIALYSIS PATIENT. MC PRN (07:00)
[2016-11-12] MEDS ORDERED: diphenhydrAMINE 50 MG/ML VIAL IV PRN ×2 (07:00)
[2016-11-12 07:56] LABS: HEMATOCRIT 29.9 % (36.0-47.0); HEMOGLOBIN 9.8 g/dL (12.0-15.5); RED BLOOD COUNT 2.87 x10^6/uL (3.50-5.40); RED CELL DISTRIBUTION WIDTH 17.5 % (11.5-14.5); WHITE BLOOD COUNT 9.2 x10^3/uL (4.0-11.0)
[2016-11-12 07:58] LABS: CALCIUM 9.7 mg/dL (8.5-10.1); CREATININE 2.9 mg/dL (0.6-1.0); GFR 19.5
[2016-11-12] MEDS: INSULIN ASPART 300 UNITS/3 ML INSULN.PEN SQ SCH ×3 (08:00→17:16)
--- NOTE | 2016-11-12 08:52 | PDOC ---
Provider Note Provider Note Vascular S: Patient seen on dialysis, "sleepy" O: VSS, temp WNL 100.3 last pm left arm with moderate swelling, good thrill in fistula, incision intact, no erythema noted PC right chest functioning well A/P: ESRD on dialysis Continue dialysis via PC f/u with Dr. Barkley as scheduled for post op fistula placement KENA DARLING APRN November 12, 2016 08:52
--- NOTE | 2016-11-12 08:53 | PDOC ---
Provider Note Provider Note seen in dialysis, less sleepy, oriented- low grade temp noted- labs ok, cults neg- will follow but better ms seems to be related to dialysis JABIER LEIGH MD November 12, 2016 08:53
--- NOTE | 2016-11-12 09:42 | RAD ---
Ultrasound and fluoro guided placement of right IJ tunneled hemodialysis catheter Indication: 66-year-old female with end-stage renal disease, and with recently placed, immature left upper arm AV fistula. Tunneled dialysis catheter insertion has been requested by renal. Fluoro time: 1.2 minutes Kerma-Area Product: 6 Gycm2 Moderate sedation: 21 minutes moderate sedation was provided utilizing a total of 2 mg Versed and 50 mcg fentanyl, IV. The patient was appropriately monitored by a qualified independent observer throughout the time of moderate sedation. Antibiotic: A single dose of Clindamycin was administered within 1 hour of the procedure start time. Cephalosporin was withheld due to allergy. Sterility: All elements of maximal sterile barrier technique, including the use of a cap, mask, sterile gown, sterile gloves, large sterile sheet, appropriate hand hygiene, and 2% chlorhexidine for cutaneous antisepsis (or acceptable alternative antiseptic per current guidelines) were utilized. Consent: The procedure was explained in its entirety to the patient and/or the patient's designated applications sales representative by a member of the treatment team. This included a discussion of risks and benefits and commonly accepted alternatives to the procedure, as well as expected consequences of no treatment at all. Discussion of risks included, but was not limited to, those that are most frequent (bleeding, infection, and catheter malfunction) and those that are rare, but possibly severe or life-threatening, as well as the possibility of unforeseen complications. Procedure: Informed consent was obtained from the patient's son. She was placed supine on the angiography table. Preliminary ultrasound examination of right neck revealed wide patency of right internal jugular vein, which was documented with a hard copy ultrasound image. Right neck and upper chest were then prepped and draped in the usual sterile fashion, utilizing all elements of maximal sterile barrier technique, as described above. Moderate sedation was provided with IV Versed and Fentanyl. 600 mg clindamycin was given IV, prophylactically. Using aseptic technique and local anesthesia, a small skin incision was made lateral to right internal jugular vein, just above clavicle. Using aseptic technique, local anesthesia, and direct ultrasound guidance, a micropuncture needle was successfully introduced into right internal jugular vein. The micropuncture needle was then exchanged over a microguidewire for a micropuncture sheath, through which an Amplatz wire was advanced into IVC, under fluoroscopic control. A second small skin incision was then made along upper anterior aspect of right chest. A subcutaneous tunnel was then fashioned between the right chest and supraclavicular incisions. A 15.5 F 28 cm Dura Max dialysis catheter was pulled through the subcutaneous tunnel from inferior to superior, utilizing the tunneling device provided. The right IJ venostomy tract was then sequentially dilated and the 15.5 [place] dialysis catheter was easily advanced centrally through a 16 [place] peel-away sheath, and was positioned with its tip at the level of upper right atrium utilizing fluoroscopic guidance. This catheter was demonstrated to flush and aspirate normally, was packed, and was secured at the right chest exit site utilizing 2-0 Prolene and sterile dressing. The small supraclavicular incision was closed with 4-0 Vicryl, Steri-Strips, and sterile dressing. Patient tolerated the procedure well without apparent complication. Satisfactory position of the dialysis catheter was confirmed with a single fluoroscopic spot image. Impression: Successful, uneventful ultrasound and fluoro guided placement of right IJ 15.5 F 28 cm Dura Max tunneled hemodialysis catheter, as described.
[2016-11-12] MEDS: oxyCODONE/APAP 5/325 1 TAB TABLET PO PRN (10:10)
--- NOTE | 2016-11-12 10:34 | PDOC ---
Renal-Progress Notes Subjective Notes Notes LESS CONFUSED History of Present Illness Hx of present illness STABLE Vitals Vitals Vital Signs Date Time Temp Pulse Resp B/P (MAP) Pulse Ox O2 Delivery O2 Flow Rate FiO2 11/12/16 10:10 16 97 Room Air 11/12/16 07:00 97.7 61 155/86 (109) 97.7 11/11/16 14:30 2.0 Weight Weight [ ] I.O. Intake and Output Intake and Output 11/12/16 07:00 Intake Total 0 ml Output Total 525 ml Balance -525 ml Intake Oral 0 ml Output Urine Total 525 ml # Voids 3 Labs Labs Laboratory Tests Test 11/11/16 20:47 11/12/16 07:30 Glucose (Fingerstick) 124 mg/dL (70-99) White Blood Count 9.2 x10^3/uL (4.0-11.0) Red Blood Count 2.87 x10^6/uL (3.50-5.40) Hemoglobin 9.8 g/dL (12.0-15.5) Hematocrit 29.9 % (36.0-47.0) Mean Corpuscular Volume 104 fL (79-100) Mean Corpuscular Hemoglobin 34 pg (25-35) Mean Corpuscular Hemoglobin Concent 33 g/dL (31-37) Red Cell Distribution Width 17.5 % (11.5-14.5) Platelet Count 173 x10^3/uL (140-400) Sodium Level 141 mmol/L (136-145) Potassium Level 4.0 mmol/L (3.5-5.1) Chloride Level 104 mmol/L (98-107) Carbon Dioxide Level 28 mmol/L (21-32) Anion Gap 9 (6-14) Blood Urea Nitrogen 43 mg/dL (7-20) Creatinine 2.9 mg/dL (0.6-1.0) Estimated GFR (Cockcroft-Gault) 19.5 Glucose Level 150 mg/dL (70-99) Calcium Level 9.7 mg/dL (8.5-10.1) Micro Micro Microbiology 11/09/16 Blood Culture - Preliminary, Resulted NO GROWTH AFTER 2 DAYS 11/09/16 Urine Culture - Final, Complete 11/09/16 Urine Culture Result 1 (STEPHANIE) - Final, Complete Review of Systems Constitutional: yes: weakness Ears/Nose/Throat: Yes: no symptom reported Eyes: Yes: no symptom reported Pulmonary: Yes no symptom reported Cardiovascular: Yes no symptom reported Gastrointestional: Yes: no symptom reported Psychiatric/Neurological: Yes: confusion, weakness Endocrine: Yes: no symptom reported Physical Exam General Appearance: no apparent distress Skin: warm Respiratory: bilateral CTA Heart: S1S2 Abdomen: soft, bowel sounds present Genitourinary: bladder flat Extremities: pulses present Neurology: alert, oriented Assessment Assessment IMP UREMIA ANEMIA ESRD-AGREED TO HD YESTERDAY PROB UREMIC RELATED ENCEPHALOPATHY HTN PLAN 2ND HD TODAY MIN UF AGAIN INCREASE QT TO 3 HD AGAIN IN AM CM SETTING UP OP HD UPDATED SON MCKAYLA HITCHCOCK MD November 12, 2016 10:34
[2016-11-12 11:00] VITALS: BP 138/95
[2016-11-12] MEDS: CARVEDILOL 12.5 MG TABLET. PO SCH ×2 (11:51→17:12)
[2016-11-12] MEDS: hydrALAZINE 25 MG TABLET PO SCH ×2 (11:52→21:35)
[2016-11-12] MEDS: ASPIRIN ENTERIC COATED 81 MG TABLET.DR. PO SCH (11:56)
[2016-11-12] MEDS: FUROSEMIDE 20 MG TABLET PO SCH (11:56)
[2016-11-12] MEDS: amLODIPine BESYLATE 10 MG TABLET PO SCH (11:57)
[2016-11-12] MEDS: MULTIVITAMIN with MINERAL TABLET. PO SCH (11:57)
[2016-11-12] MEDS: CETIRIZINE HCL 10 MG TABLET. PO SCH (11:58)
[2016-11-12] MEDS: PARICALCITOL 1 MCG CAPSULE PO SCH ×2 (11:58→17:11)
[2016-11-12] MEDS: ALLOPURINOL 100 MG TABLET. PO SCH ×2 (11:59→17:11)
[2016-11-12] MEDS: LISINOPRIL 20 MG TABLET PO SCH (13:25)
[2016-11-12 15:00] VITALS: BP 125/52
[2016-11-12 19:00] VITALS: BP 123/64
[2016-11-12] MEDS ORDERED: INSULIN DETEMIR 300 UNITS/3 ML INSULN.PEN. SQ SCH (21:00)
[2016-11-12] MEDS: METOCLOPRAMIDE 5 MG TABLET. PO SCH (21:36)
[2016-11-12] MEDS: PHENYTOIN SODIUM EXTENDED 30 MG CAPSULE. PO SCH (21:36)
[2016-11-12] MEDS: ACETAMINOPHEN 325 MG TABLET. PO PRN (21:36)
[2016-11-12 23:00] VITALS: BP 113/61
[2016-11-13] VITALS (7 sets, daily range): BP systolic 115–142; BP diastolic 47–67
[2016-11-13 04:37] LABS: HEMATOCRIT 27.4 % (36.0-47.0); HEMOGLOBIN 9.5 g/dL (12.0-15.5); RED BLOOD COUNT 2.68 x10^6/uL (3.50-5.40); RED CELL DISTRIBUTION WIDTH 17.5 % (11.5-14.5); WHITE BLOOD COUNT 8.3 x10^3/uL (4.0-11.0)
[2016-11-13 04:53] LABS: CREATININE 3.5 mg/dL (0.6-1.0); GFR 15.7; POTASSIUM 3.9 mmol/L (3.5-5.1)
[2016-11-13] MEDS: LEVOTHYROXINE 137 MCG TABLET PO SCH (06:15)
[2016-11-13] MEDS: PHENYTOIN SODIUM EXTENDED 100 MG CAPSULE PO SCH ×2 (06:15→12:03)
[2016-11-13] MEDS: PANTOPRAZOLE 40 MG TABLET.DR. PO SCH (06:15)
[2016-11-13] MEDS ORDERED: IV NORMAL SALINE 1000ML BAG 1,000 ML IV PRN (07:31)
[2016-11-13] MEDS ORDERED: DIALYSIS PATIENT. MC PRN ×2 (07:45)
[2016-11-13] MEDS: INSULIN ASPART 300 UNITS/3 ML INSULN.PEN SQ SCH ×3 (08:00→17:55)
--- NOTE | 2016-11-13 08:38 | PDOC ---
Provider Note Provider Note sleeping in hd- vss, bp lower so will reduce norvasc dose- fam wants snf, eval in progress- rest same JABIER LEIGH MD November 13, 2016 08:38
--- NOTE | 2016-11-13 11:28 | PDOC ---
Renal-Progress Notes Subjective Notes Notes BETTER History of Present Illness Hx of present illness STABLE Vitals Vitals Vital Signs Date Time Temp Pulse Resp B/P (MAP) Pulse Ox O2 Delivery O2 Flow Rate FiO2 11/13/16 07:15 98.6 68 14 141/51 (81) 98 Nasal Cannula 2.0 98.6 Weight Weight [ ] I.O. Intake and Output Intake and Output 11/13/16 07:00 Intake Total 920 ml Balance 920 ml Intake Oral 920 ml # Voids 3 Labs Labs Laboratory Tests Test 11/12/16 11:39 11/12/16 15:20 11/12/16 21:32 11/13/16 01:41 Glucose (Fingerstick) 126 mg/dL (70-99) 234 mg/dL (70-99) 202 mg/dL (70-99) 134 mg/dL (70-99) Test 11/13/16 04:10 11/13/16 07:53 White Blood Count 8.3 x10^3/uL (4.0-11.0) Red Blood Count 2.68 x10^6/uL (3.50-5.40) Hemoglobin 9.5 g/dL (12.0-15.5) Hematocrit 27.4 % (36.0-47.0) Mean Corpuscular Volume 103 fL (79-100) Mean Corpuscular Hemoglobin 35 pg (25-35) Mean Corpuscular Hemoglobin Concent 35 g/dL (31-37) Red Cell Distribution Width 17.5 % (11.5-14.5) Platelet Count 169 x10^3/uL (140-400) Sodium Level 139 mmol/L (136-145) Potassium Level 3.9 mmol/L (3.5-5.1) Chloride Level 100 mmol/L (98-107) Carbon Dioxide Level 33 mmol/L (21-32) Anion Gap 6 (6-14) Blood Urea Nitrogen 35 mg/dL (7-20) Creatinine 3.5 mg/dL (0.6-1.0) Estimated GFR (Cockcroft-Gault) 15.7 Glucose Level 119 mg/dL (70-99) Calcium Level 9.0 mg/dL (8.5-10.1) Glucose (Fingerstick) 108 mg/dL (70-99) Micro Micro Microbiology 11/09/16 Blood Culture - Preliminary, Resulted NO GROWTH AFTER 3 DAYS 11/09/16 Urine Culture - Final, Complete 11/09/16 Urine Culture Result 1 (STEPHANIE) - Final, Complete Review of Systems Constitutional: yes: weakness Ears/Nose/Throat: Yes: no symptom reported Eyes: Yes: no symptom reported Pulmonary: Yes no symptom reported Cardiovascular: Yes no symptom reported Gastrointestional: Yes: no symptom reported Psychiatric/Neurological: Yes: confusion, weakness Endocrine: Yes: no symptom reported Physical Exam General Appearance: no apparent distress Skin: warm Respiratory: bilateral CTA Heart: S1S2 Abdomen: soft, bowel sounds present Genitourinary: bladder flat Extremities: pulses present Neurology: alert, oriented Assessment Assessment IMP UREMIA ANEMIA ESRD-AGREED TO HD YESTERDAY PROB UREMIC RELATED ENCEPHALOPATHY HTN PLAN HD AGAIN TODAY MIN UF AGAIN INCREASE QT TO 3 UF 1 LITER HD AGAIN IN AM CM SETTING UP OP HD UPDATED DAUGHTER MCKAYLA HITCHCOCK MD November 13, 2016 11:28
[2016-11-13] MEDS: CARVEDILOL 12.5 MG TABLET. PO SCH ×2 (11:51→17:51)
[2016-11-13] MEDS: hydrALAZINE 25 MG TABLET PO SCH ×2 (11:52→21:01)
[2016-11-13] MEDS: ASPIRIN ENTERIC COATED 81 MG TABLET.DR. PO SCH (11:52)
[2016-11-13] MEDS: FUROSEMIDE 20 MG TABLET PO SCH (11:53)
[2016-11-13] MEDS: amLODIPine BESYLATE 5 MG TABLET PO SCH (11:53)
[2016-11-13] MEDS: MULTIVITAMIN with MINERAL TABLET. PO SCH (11:55)
[2016-11-13] MEDS: LISINOPRIL 20 MG TABLET PO SCH (11:55)
[2016-11-13] MEDS: CETIRIZINE HCL 10 MG TABLET. PO SCH (11:56)
[2016-11-13] MEDS: PARICALCITOL 1 MCG CAPSULE PO SCH (11:56)
[2016-11-13] MEDS: ALLOPURINOL 100 MG TABLET. PO SCH (11:56)
[2016-11-13] MEDS: ACETAMINOPHEN 325 MG TABLET. PO PRN (18:04)
[2016-11-13] MEDS: PHENYTOIN SODIUM EXTENDED 30 MG CAPSULE. PO SCH (21:00)
[2016-11-13] MEDS: METOCLOPRAMIDE 5 MG TABLET. PO SCH (21:00)
[2016-11-13] MEDS: INSULIN DETEMIR 300 UNITS/3 ML INSULN.PEN. SQ SCH (21:09)
[2016-11-14] MEDS: ACETAMINOPHEN 325 MG TABLET. PO PRN ×2 (00:09→06:30)
[2016-11-14 03:00] VITALS: BP 135/45
[2016-11-14 04:56] LABS: HEMATOCRIT 28.2 % (36.0-47.0); HEMOGLOBIN 9.4 g/dL (12.0-15.5); RED BLOOD COUNT 2.74 x10^6/uL (3.50-5.40); RED CELL DISTRIBUTION WIDTH 17.5 % (11.5-14.5); WHITE BLOOD COUNT 7.7 x10^3/uL (4.0-11.0)
[2016-11-14 05:17] LABS: CALCIUM 9.4 mg/dL (8.5-10.1); CREATININE 3.8 mg/dL (0.6-1.0); GFR 14.3; POTASSIUM 3.7 mmol/L (3.5-5.1)
[2016-11-14] MEDS: PHENYTOIN SODIUM EXTENDED 100 MG CAPSULE PO SCH ×2 (06:30→10:21)
[2016-11-14] MEDS: PANTOPRAZOLE 40 MG TABLET.DR. PO SCH (06:30)
[2016-11-14] MEDS: LEVOTHYROXINE 137 MCG TABLET PO SCH (06:30)
[2016-11-14] MEDS: CARVEDILOL 12.5 MG TABLET. PO SCH ×3 (07:54→16:37)
[2016-11-14] MEDS: INSULIN ASPART 300 UNITS/3 ML INSULN.PEN SQ SCH ×3 (07:55→17:26)
[2016-11-14] MEDS: hydrALAZINE 25 MG TABLET PO SCH ×3 (07:55→21:10)
[2016-11-14] MEDS: ASPIRIN ENTERIC COATED 81 MG TABLET.DR. PO SCH ×2 (07:55→10:21)
[2016-11-14] MEDS: FUROSEMIDE 20 MG TABLET PO SCH ×2 (07:55→10:21)
[2016-11-14] MEDS: LISINOPRIL 20 MG TABLET PO SCH ×2 (07:55→10:20)
[2016-11-14] MEDS: amLODIPine BESYLATE 5 MG TABLET PO SCH ×2 (07:55→10:22)
[2016-11-14] MEDS: ALLOPURINOL 100 MG TABLET. PO SCH ×2 (07:56→10:21)
[2016-11-14] MEDS: CETIRIZINE HCL 10 MG TABLET. PO SCH ×2 (07:56→10:21)
[2016-11-14] MEDS: PARICALCITOL 1 MCG CAPSULE PO SCH ×2 (07:56→10:21)
[2016-11-14] MEDS: MULTIVITAMIN with MINERAL TABLET. PO SCH ×2 (07:56→10:20)
[2016-11-14] MEDS ORDERED: DIALYSIS PATIENT. MC PRN ×2 (08:00)
[2016-11-14] MEDS ORDERED: IV NORMAL SALINE 1000ML BAG 1,000 ML IV PRN (08:00)
--- NOTE | 2016-11-14 08:21 | PDOC ---
PROGRESS NOTES Subjective Subjective SEEN IN FOLLOW UP OF NEW ESRD Objective Objective Vital Signs Date Time Temp Pulse Resp B/P (MAP) Pulse Ox O2 Delivery O2 Flow Rate FiO2 11/14/16 03:00 96.4 69 16 135/45 (75) 96 Room Air 96.4 11/13/16 11:44 2.0 Intake and Output 11/14/16 06:59 Intake Total 460 ml Balance 460 ml Intake Oral 460 ml # Bowel Movements 1 Physical Exam Abdomen: Normal bowel sounds, Soft, No tenderness, No hepatosplenomegaly, No masses Heart: Regular rate, Normal S1, Normal S2, No murmurs, Gallops Extremities: No clubbing, No cyanosis, No edema, Normal pulses, No tenderness/ swelling General: Alert, Oriented X3, Cooperative, No acute distress Lungs: Clear to auscultation, Normal air movement Psych/Mental Status: Mental status NL, Mood NL Diagnosis RENAL FAILURE: ESRD Assessment Assessment Problems Medical Problems: (1) Altered mental status Status: Acute Plan Plan of Care SEEN ON DIALYSIS AND TOLERATING WELL Comment Review of Relevant I have reviewed the following items anjali (where applicable) has been applied. Labs Laboratory Tests Test 11/12/16 11:39 11/12/16 15:20 11/12/16 21:32 11/13/16 01:41 Glucose (Fingerstick) 126 mg/dL (70-99) 234 mg/dL (70-99) 202 mg/dL (70-99) 134 mg/dL (70-99) Test 11/13/16 04:10 11/13/16 07:53 11/13/16 11:28 11/13/16 16:30 White Blood Count 8.3 x10^3/uL (4.0-11.0) Red Blood Count 2.68 x10^6/uL (3.50-5.40) Hemoglobin 9.5 g/dL (12.0-15.5) Hematocrit 27.4 % (36.0-47.0) Mean Corpuscular Volume 103 fL (79-100) Mean Corpuscular Hemoglobin 35 pg (25-35) Mean Corpuscular Hemoglobin Concent 35 g/dL (31-37) Red Cell Distribution Width 17.5 % (11.5-14.5) Platelet Count 169 x10^3/uL (140-400) Sodium Level 139 mmol/L (136-145) Potassium Level 3.9 mmol/L (3.5-5.1) Chloride Level 100 mmol/L (98-107) Carbon Dioxide Level 33 mmol/L (21-32) Anion Gap 6 (6-14) Blood Urea Nitrogen 35 mg/dL (7-20) Creatinine 3.5 mg/dL (0.6-1.0) Estimated GFR (Cockcroft-Gault) 15.7 Glucose Level 119 mg/dL (70-99) Calcium Level 9.0 mg/dL (8.5-10.1) Glucose (Fingerstick) 108 mg/dL (70-99) 96 mg/dL (70-99) 185 mg/dL (70-99) Test 11/13/16 21:00 11/14/16 04:10 Glucose (Fingerstick) 165 mg/dL (70-99) White Blood Count 7.7 x10^3/uL (4.0-11.0) Red Blood Count 2.74 x10^6/uL (3.50-5.40) Hemoglobin 9.4 g/dL (12.0-15.5) Hematocrit 28.2 % (36.0-47.0) Mean Corpuscular Volume 103 fL (79-100) Mean Corpuscular Hemoglobin 34 pg (25-35) Mean Corpuscular Hemoglobin Concent 33 g/dL (31-37) Red Cell Distribution Width 17.5 % (11.5-14.5) Platelet Count 184 x10^3/uL (140-400) Sodium Level 139 mmol/L (136-145) Potassium Level 3.7 mmol/L (3.5-5.1) Chloride Level 100 mmol/L (98-107) Carbon Dioxide Level 32 mmol/L (21-32) Anion Gap 7 (6-14) Blood Urea Nitrogen 31 mg/dL (7-20) Creatinine 3.8 mg/dL (0.6-1.0) Estimated GFR (Cockcroft-Gault) 14.3 Glucose Level 140 mg/dL (70-99) Calcium Level 9.4 mg/dL (8.5-10.1) Laboratory Tests Test 11/13/16 11:28 11/13/16 16:30 11/13/16 21:00 11/14/16 04:10 Glucose (Fingerstick) 96 mg/dL (70-99) 185 mg/dL (70-99) 165 mg/dL (70-99) White Blood Count 7.7 x10^3/uL (4.0-11.0) Red Blood Count 2.74 x10^6/uL (3.50-5.40) Hemoglobin 9.4 g/dL (12.0-15.5) Hematocrit 28.2 % (36.0-47.0) Mean Corpuscular Volume 103 fL (79-100) Mean Corpuscular Hemoglobin 34 pg (25-35) Mean Corpuscular Hemoglobin Concent 33 g/dL (31-37) Red Cell Distribution Width 17.5 % (11.5-14.5) Platelet Count 184 x10^3/uL (140-400) Sodium Level 139 mmol/L (136-145) Potassium Level 3.7 mmol/L (3.5-5.1) Chloride Level 100 mmol/L (98-107) Carbon Dioxide Level 32 mmol/L (21-32) Anion Gap 7 (6-14) Blood Urea Nitrogen 31 mg/dL (7-20) Creatinine 3.8 mg/dL (0.6-1.0) Estimated GFR (Cockcroft-Gault) 14.3 Glucose Level 140 mg/dL (70-99) Calcium Level 9.4 mg/dL (8.5-10.1) Microbiology 11/09/16 Blood Culture - Preliminary, Resulted NO GROWTH AFTER 4 DAYS 11/09/16 Urine Culture - Final, Complete 11/09/16 Urine Culture Result 1 (STEPHANIE) - Final, Complete Medications Current Medications Vancomycin HCl 1.25 gm/Sodium Chloride 250 ml @ 166.667 mls/hr 1X ONCE IV ; Start 11/09/16 at 18:15; Stop 11/09/16 at 18:26; Status DC Vancomycin HCl 2 gm/Sodium Chloride 500 ml @ 250 mls/hr 1X ONCE IV Last administered on 11/09/16t 19:07; Start 11/09/16 at 19:00; Stop 11/09/16 at 20:59; Status DC Allopurinol (Zyloprim) 100 mg BID PO ; Start 11/10/16 at 09:00; Stop 11/10/16 at 09:00; Status DC Amlodipine Besylate (Norvasc) 10 mg DAILY PO Last administered on 11/12/16 11: 57; Start 11/10/16 at 09:00; Stop 11/13/16 at 08:37; Status DC Aspirin (Ecotrin) 81 mg DAILY PO Last administered on 11/13/16 11:52; Start at 09:00 Cetirizine HCl (Zyrtec) 10 mg DAILY PO Last administered on 11/13/16 11:56; Start 11/10/16 at 09:00 Diphenhydramine HCl (Benadryl) 25 mg DAILY PO ; Start 11/10/16 at 09:00; Stop 11/10/16 at 09:00; Status DC Furosemide (Lasix) 20 mg DAILY PO Last administered on 11/13/16 11:53; Start 11/10/16 at 09:00 Hydralazine HCl (Apresoline) 25 mg BID PO Last administered on 11/13/16 21:01 ; Start 11/10/16 at 09:00 Levothyroxine Sodium (Synthroid) 137 mcg DAILY07 PO Last administered on 06:30; Start 11/10/16 at 07:00 Metoclopramide HCl (Reglan) 5 mg HS PO Last administered on 11/13/16 21:00; Start 11/10/16 at 21:00 Oxycodone/ Acetaminophen (Percocet 5/325) 1 tab PRN Q4HRS PO ; Start 11/09/16 at 22:15; Stop 11/09/16 at 22:17; Status DC Paricalcitol (Zemplar) 1 mcg DAILY PO Last administered on 11/13/16 11:56; Start 11/10/16 at 09:00 Phenytoin Sodium (Dilantin) 100 mg BIDACBL PO Last administered on 11/14/16 06 :30; Start 11/10/16 at 07:30 Phenytoin Sodium (Dilantin) 30 mg HS PO ; Start 11/10/16 at 21:00; Stop 11/10/16 at 22:14; Status DC Carvedilol (Coreg) 25 mg BIDWMEALS PO Last administered on 11/13/16 17:51; Start 11/10/16 at 08:00 Darbepoetin Harish (Aranesp) 25 mcg WEEKLYHS SQ Last administered on 11/11/16 21 :21; Start 11/11/16 at 21:00 Insulin Aspart (Novolog) 10 units TIDAC SQ ; Start 11/10/16 at 07:30; Stop at 08:44; Status DC Insulin Detemir (Levemir) 75 units QHS SQ ; Start 11/09/16 at 22:30; Stop at 08:55; Status DC Non-Formulary Medication 10 unit TIDAC SQ ; Start 11/10/16 at 07:30; Status UNV Multivitamins (Thera M Plus) 1 tab DAILY PO ; Start 11/10/16 at 09:00 Pantoprazole Sodium (Protonix) 40 mg DAILYAC PO Last administered on 11/14/16 06:30; Start 11/10/16 at 09:00 Oxycodone/ Acetaminophen (Percocet 5/325) 2 tab PRN Q4HRS PRN PO MODERATE TO SEVERE PAIN; Start 11/09/16 at 22:30 Oxycodone/ Acetaminophen (Percocet 5/325) 1 tab PRN Q4HRS PRN PO MILD TO MODERATE PAIN Last administered on 11/12/16 10:10; Start 11/09/16 at 22:30 Allopurinol (Zyloprim) 100 mg DAILY10 PO Last administered on 11/13/16 11:56; Start 11/10/16 at 10:00 Insulin Aspart (Novolog) 0-7 UNITS TIDWMEALS SQ Last administered on 11/13/16 17:55; Start 11/10/16 at 12:00 Dextrose (Dextrose 50%-Water Syringe) 12.5 gm PRN Q15MIN PRN IV SEE COMMENTS; Start 11/10/16 at 08:45 Ibuprofen (Motrin) 400 mg PRN Q6HRS PRN PO INFLAMMATION; Start 11/10/16 at 22:00 ; Stop 11/11/16 at 11:46; Status DC Phenytoin Sodium (Dilantin) 30 mg HS PO Last administered on 11/13/16 21:00; Start 11/10/16 at 22:30 Heparin Sodium (Porcine) (Heparin Sodium) 10,000 unit STK-MED ONCE .ROUTE ; Start 11/11/16 at 08:16; Stop 11/11/16 at 08:17; Status DC Lidocaine/ Epinephrine (Xylocaine 1%-Epi 1:100,000) 20 ml STK-MED ONCE .ROUTE ; Start 11/11/16 at 08:16; Stop 11/11/16 at 08:17; Status DC Heparin Sodium/ Sodium Chloride 500 ml @ As Directed STK-MED ONCE .ROUTE ; Start 11/11/16 at 08:16; Stop 11/11/16 at 08:17; Status DC Midazolam HCl (Versed) 5 mg STK-MED ONCE .ROUTE ; Start 11/11/16 at 13:48; Stop 11/11/16 at 13:49; Status DC Fentanyl Citrate (Fentanyl 5ml Vial) 250 mcg STK-MED ONCE .ROUTE ; Start at 13:48; Stop 11/11/16 at 13:49; Status DC Cefazolin Sodium 50 ml @ As Directed STK-MED ONCE IV ; Start 11/11/16 at 13:48; Stop 11/11/16 at 13:49; Status DC Heparin Sodium (Porcine) (Heparin Sodium) 10,000 unit STK-MED ONCE .ROUTE ; Start 11/11/16 at 13:49; Stop 11/11/16 at 13:50; Status DC Lidocaine/ Epinephrine (Xylocaine 1%-Epi 1:100,000) 20 ml STK-MED ONCE .ROUTE ; Start 11/11/16 at 13:49; Stop 11/11/16 at 13:50; Status DC Heparin Sodium/ Sodium Chloride 500 ml @ As Directed STK-MED ONCE .ROUTE ; Start 11/11/16 at 13:49; Stop 11/11/16 at 13:50; Status DC Clindamycin Phosphate 50 ml @ As Directed STK-MED ONCE IV ; Start 11/11/16 at 13 :52; Stop 11/11/16 at 13:53; Status DC Heparin Sodium (Porcine) (Heparin Sodium) 2,500 unit 1X ONCE IART ; Start 11/11 at 14:00; Stop 11/11/16 at 14:09; Status DC Midazolam HCl (Versed) 5 mg 1X ONCE IV Last administered on 11/11/16t 14:29; Start 11/11/16 at 14:00; Stop 11/11/16 at 14:09; Status DC Fentanyl Citrate (Fentanyl 5ml Vial) 250 mcg 1X ONCE IV Last administered on 14:30; Start 11/11/16 at 14:00; Stop 11/11/16 at 14:09; Status DC Lidocaine/ Epinephrine (Xylocaine 1%-Epi 1:100,000) 20 ml 1X ONCE INJ Last administered on 11/11/16 14:29; Start 11/11/16 at 14:00; Stop 11/11/16 at 14:09 ; Status DC Clindamycin Phosphate 50 ml @ 100 mls/hr 1X ONCE IV Last administered on 11/11 14:15; Start 11/11/16 at 14:15; Stop 11/11/16 at 14:44; Status DC Heparin Sodium/ Sodium Chloride 1,000 unit 1X ONCE IART Last administered on 14:29; Start 11/11/16 at 14:15; Stop 11/11/16 at 14:16; Status DC Heparin Sodium (Porcine) (Heparin Sodium) 4,300 unit 1X ONCE IV Last administered on 11/11/16 14:30; Start 11/11/16 at 14:15; Stop 11/11/16 at 14:16 ; Status DC Sodium Chloride 1,000 ml @ 1,000 mls/hr Q1H PRN IV hypotension; Start 11/11/16 at 15:13; Stop 11/11/16 at 21:12; Status DC Info (PHARMACY MONITORING -- do not chart) 1 each PRN DAILY PRN MC SEE COMMENTS ; Start 11/11/16 at 15:15 Info (PHARMACY MONITORING -- do not chart) 1 each PRN DAILY PRN MC SEE COMMENTS ; Start 11/11/16 at 15:15; Status UNV Sodium Chloride 1,000 ml @ 1,000 mls/hr Q1H PRN IV hypotension; Start 11/12/16 at 06:55; Stop 11/12/16 at 12:54; Status DC Diphenhydramine HCl (Benadryl) 25 mg 1X PRN PRN IV ITCHING; Start 11/12/16 at 07:00; Stop 11/13/16 at 06:59; Status DC Diphenhydramine HCl (Benadryl) 25 mg 1X PRN PRN IV ITCHING; Start 11/12/16 at 07:00; Stop 11/13/16 at 06:59; Status DC Sodium Chloride 1,000 ml @ 400 mls/hr Q2H30M PRN IV PATENCY; Start 11/12/16 at 06:55; Stop 11/12/16 at 18:54; Status DC Info (PHARMACY MONITORING -- do not chart) 1 each PRN DAILY PRN MC SEE COMMENTS ; Start 11/12/16 at 07:00; Status UNV Insulin Detemir (Levemir) 60 units QHS SQ Last administered on 11/12/16 21:43 ; Start 11/12/16 at 21:00; Stop 11/13/16 at 08:32; Status DC Lisinopril (Prinivil) 20 mg DAILY PO Last administered on 11/12/16 13:25; Start 11/12/16 at 11:30 Acetaminophen (Tylenol) 650 mg PRN Q6HRS PRN PO MILD PAIN / TEMP Last administered on 11/14/16 06:30; Start 11/12/16 at 20:30 Sodium Chloride 1,000 ml @ 1,000 mls/hr Q1H PRN IV hypotension; Start 11/13/16 at 07:31; Stop 11/13/16 at 13:30; Status DC Info (PHARMACY MONITORING -- do not chart) 1 each PRN DAILY PRN MC SEE COMMENTS ; Start 11/13/16 at 07:45; Status UNV Info (PHARMACY MONITORING -- do not chart) 1 each PRN DAILY PRN MC SEE COMMENTS ; Start 11/13/16 at 07:45; Status UNV Insulin Detemir (Levemir) 65 units QHS SQ Last administered on 11/13/16 21:09 ; Start 11/13/16 at 21:00 Amlodipine Besylate (Norvasc) 5 mg DAILY PO Last administered on 11/13/16 11: 53; Start 11/13/16 at 09:00 Sodium Chloride 1,000 ml @ 1,000 mls/hr Q1H PRN IV hypotension; Start 11/14/16 at 08:00; Stop 11/14/16 at 15:00 Info (PHARMACY MONITORING -- do not chart) 1 each PRN DAILY PRN MC SEE COMMENTS ; Start 11/14/16 at 08:00; Status UNV Info (PHARMACY MONITORING -- do not chart) 1 each PRN DAILY PRN MC SEE COMMENTS ; Start 11/14/16 at 08:00; Status UNV Active Scripts Active Reported Humalog (Insulin Lispro) 100 Unit/1 Ml Insuln.pen 10 Unit SQ TIDAC Lantus Solostar (Insulin Glargine,Hum.rec.anlog) 100 Unit/1 Ml Insuln.pen 75 Unit SQ QHS Dilantin (Phenytoin Sodium Extended) 100 Mg Capsule 30 Mg PO HS Dilantin (Phenytoin Sodium Extended) 100 Mg Capsule 1 Cap PO BIDACBL Zemplar (Paricalcitol) 1 Mcg Capsule 1 Mcg PO DAILY Omeprazole 20 Mg Capsule.dr 1 Cap PO DAILY Multi-Day Vitamins (Multivitamin) 1 Each Tablet 1 Tab PO DAILY Reglan (Metoclopramide Hcl) 10 Mg Tablet 0.5 Tab PO HS Levothyroxine Sodium 137 Mcg Tablet 1 Tab PO DAILY Novolog (Insulin Aspart) 100 Unit/1 Ml Cartridge 10 Unit SQ TIDAC Hydralazine Hcl 25 Mg Tablet 1 Tab PO BID Percocet 5-325 Mg Tablet (Oxycodone/Acetaminophen) 1 Each Tablet 1-2 Tab PO Q4- 6HRS Epogen (Epoetin Harish) 2,000 Unit/1 Ml Vial 2,000 Unit IJ WEEKLY Synthroid (Levothyroxine Sodium) 137 Mcg Tablet 1 Tab PO DAILY Zyrtec (Cetirizine Hcl) 10 Mg Tablet 1 Tab PO DAILY Benadryl (Diphenhydramine Hcl) 25 Mg Capsule 25 Mg PO DAILY Aspir 81 (Aspirin) 81 Mg Tablet. 81 Mg PO DAILY Allopurinol 100 Mg Tablet 100 Mg PO DAILY Carvedilol 25 Mg Tablet 25 Mg PO BIDWMEALS Omeprazole 20 Mg Tablet. 20 Mg PO DAILY Losartan Potassium 100 Mg Tablet 100 Mg PO DAILY Amlodipine Besylate 10 Mg Tablet 10 Mg PO DAILY Furosemide 20 Mg Tablet 20 Mg PO DAILY Novolog (Insulin Aspart) 100 Unit/1 Ml Vial 12 Unit SQ TIDAC Lantus (Insulin Glargine,Hum.rec.anlog) 100 Unit/1 Ml Vial 70 Unit SQ HS Dilantin (Phenytoin Sodium Extended) 100 Mg Capsule 200 Mg PO DAILY Dilantin (Phenytoin Sodium Extended) 30 Mg Capsule 60 Mg PO DAILY Vitals/I & O Vital Sign - Last 24 Hours 11/13/16 11/13/16 11/13/1617 11:44 11:51 11:52 11:53 Temp 98.2 98.2 Pulse 68 68 68 68 Resp 14 B/P (MAP) 115/52 (73) 115/52 115/52 115/52 Pulse Ox 98 O2 Delivery Nasal Cannula O2 Flow Rate 2.0 11/13/16 11/13/16 11/13/16 11/13/16 11:55 15:00 17:51 19:00 Temp 97.7 98.6 97.7 98.6 Pulse 68 75 75 69 Resp 16 16 B/P (MAP) 115/52 134/57 (82) 134/57 119/58 (78) Pulse Ox 95 95 O2 Delivery Room Air Room Air 11/13/16 11/13/16 11/13/16 11/14/16 20:00 21:01 23:00 03:00 Temp 98.6 96.4 98.6 96.4 Pulse 69 70 69 Resp 16 16 B/P (MAP) 119/58 142/47 (78) 135/45 (75) Pulse Ox 91 96 O2 Delivery Room Air Room Air Room Air Intake and Output 11/13/16 11/13/16 11/14/16 14:59 22:59 06:59 Intake Total 120 ml 240 ml 100 ml Balance 120 ml 240 ml 100 ml MARI OSMAN MD November 14, 2016 08:21
--- NOTE | 2016-11-14 09:33 | PDOC ---
Provider Note Provider Note Left upper arm incision is intact with no erythema/drainage, good thrill in the fistula with some normal mild post-op swelling s/p left upper arm AV fistula transposition is patent with no signs of infection - follow up with Dr. Barkley in 2 weeks following discharge CASSIUS BARKLEY MD November 14, 2016 09:33
--- NOTE | 2016-11-14 09:45 | PDOC ---
GENERAL General: vss and afebrile. receiving dialysis as I saw this am. main complaint is constipation and will order meds for same. mental status seems good this am. chest clear and heart regular. Problems: VITAL SIGNS Vital Signs: Vital Signs Date Time Temp Pulse Resp B/P (MAP) Pulse Ox O2 Delivery O2 Flow Rate FiO2 11/14/16 07:16 Nasal Cannula 11/14/16 03:00 96.4 69 16 135/45 (75) 96 96.4 11/13/16 11:44 2.0 I & O I & O Intake and Output 11/14/16 07:00 Intake Total 460 ml Balance 460 ml Intake Oral 460 ml # Bowel Movements 1 ALLERGIES Allergies: Allergies Coded Allergies Type Severity Reaction Last Updated Verified Penicillins Allergy Intermediate 04/16/16 Yes Sulfa (Sulfonamide Antibiotics) Allergy Intermediate 04/16/16 Yes adhesive tape Allergy Intermediate 11/09/16 Yes codeine Allergy Intermediate 04/16/16 Yes doxycycline Allergy Intermediate 04/16/16 Yes MEDS Medications: Current Medications Medications (Trade) Dose Ordered Sig/Jie Start Time Stop Time Status Last Admin Dose Admin Acetaminophen (Tylenol) 650 mg PRN Q6HRS PRN 11/12/16 20:30 11/14/16 06:30 650 MG Allopurinol (Zyloprim) 100 mg DAILY10 11/10/16 10:00 11/13/16 11:56 100 MG Amlodipine Besylate (Norvasc) 5 mg DAILY 11/13/16 09:00 11/13/16 11:53 5 MG Aspirin (Ecotrin) 81 mg DAILY 11/10/16 09:00 11/13/16 11:52 81 MG Carvedilol (Coreg) 25 mg BIDWMEALS 11/10/16 08:00 11/13/16 17:51 25 MG Cefazolin Sodium 50 ml @ As Directed STK-MED ONCE 11/11/16 13:48 11/11/16 13:49 DC Cetirizine HCl (Zyrtec) 10 mg DAILY 11/10/16 09:00 11/13/16 11:56 10 MG Clindamycin Phosphate 50 ml @ 100 mls/hr 1X ONCE 11/11/16 14:15 11/11/16 14:44 DC 11/11/16 14:15 100 MLS/HR Darbepoetin Harish (Aranesp) 25 mcg WEEKLYHS 11/11/16 21:00 11/11/16 21:21 25 MCG Dextrose (Dextrose 50%-Water Syringe) 12.5 gm PRN Q15MIN PRN 11/10/16 08:45 Diphenhydramine HCl (Benadryl) 25 mg 1X PRN PRN 11/12/16 07:00 11/13/16 06:59 DC Fentanyl Citrate (Fentanyl 5ml Vial) 250 mcg 1X ONCE 11/11/16 14:00 11/11/16 14:09 DC 11/11/16 14:30 250 MCG Furosemide (Lasix) 20 mg DAILY 11/10/16 09:00 11/13/16 11:53 20 MG Heparin Sodium (Porcine) (Heparin Sodium) 4,300 unit 1X ONCE 11/11/16 14:15 11/11/16 14:16 DC 11/11/16 14:30 4,300 UNIT Heparin Sodium/ Sodium Chloride 1,000 unit 1X ONCE 11/11/16 14:15 11/11/16 14:16 DC 11/11/16 14:29 1,000 UNIT Hydralazine HCl (Apresoline) 25 mg BID 11/10/16 09:00 11/13/16 21:01 25 MG Ibuprofen (Motrin) 400 mg PRN Q6HRS PRN 11/10/16 22:00 11/11/16 11:46 DC Info (PHARMACY MONITORING -- do not chart) 1 each PRN DAILY PRN 11/14/16 08:00 UNV Insulin Aspart (Novolog) 0-7 UNITS TIDWMEALS 11/10/16 12:00 11/13/16 17:55 3 UNITS Insulin Detemir (Levemir) 65 units QHS 11/13/16 21:00 11/13/16 21:09 65 UNITS Levothyroxine Sodium (Synthroid) 137 mcg DAILY07 11/10/16 07:00 11/14/16 06:30 137 MCG Lidocaine/ Epinephrine (Xylocaine 1%-Epi 1:100,000) 20 ml 1X ONCE 11/11/16 14:00 11/11/16 14:09 DC 11/11/16 14:29 20 ML Lisinopril (Prinivil) 20 mg DAILY 11/12/16 11:30 11/12/16 13:25 20 MG Metoclopramide HCl (Reglan) 5 mg HS 11/10/16 21:00 11/13/16 21:00 5 MG Midazolam HCl (Versed) 5 mg 1X ONCE 11/11/16 14:00 11/11/16 14:09 DC 11/11/16 14:29 2 MG Multivitamins (Thera M Plus) 1 tab DAILY 11/10/16 09:00 Non-Formulary Medication 10 unit TIDAC 11/10/16 07:30 UNV Oxycodone/ Acetaminophen (Percocet 5/325) 1 tab PRN Q4HRS PRN 11/09/16 22:30 11/12/16 10:10 1 TAB Pantoprazole Sodium (Protonix) 40 mg DAILYAC 11/10/16 09:00 11/14/16 06:30 40 MG Paricalcitol (Zemplar) 1 mcg DAILY 11/10/16 09:00 11/13/16 11:56 1 MCG Phenytoin Sodium (Dilantin) 30 mg HS 11/10/16 22:30 11/13/16 21:00 30 MG Sodium Chloride 1,000 ml @ 1,000 mls/hr Q1H PRN 11/14/16 08:00 11/14/16 15:00 Vancomycin HCl 1.25 gm/Sodium Chloride 250 ml @ 166.667 mls/hr 1X ONCE 11/09/16 18:15 11/09/16 18:26 DC Vancomycin HCl 2 gm/Sodium Chloride 500 ml @ 250 mls/hr 1X ONCE 11/09/16 19:00 11/09/16 20:59 DC 11/09/16 19:07 250 MLS/HR LAB Lab: Laboratory Tests Test 11/13/16 11:28 11/13/16 16:30 11/13/16 21:00 11/14/16 04:10 Glucose (Fingerstick) 96 mg/dL (70-99) 185 mg/dL (70-99) 165 mg/dL (70-99) White Blood Count 7.7 x10^3/uL (4.0-11.0) Red Blood Count 2.74 x10^6/uL (3.50-5.40) Hemoglobin 9.4 g/dL (12.0-15.5) Hematocrit 28.2 % (36.0-47.0) Mean Corpuscular Volume 103 fL (79-100) Mean Corpuscular Hemoglobin 34 pg (25-35) Mean Corpuscular Hemoglobin Concent 33 g/dL (31-37) Red Cell Distribution Width 17.5 % (11.5-14.5) Platelet Count 184 x10^3/uL (140-400) Sodium Level 139 mmol/L (136-145) Potassium Level 3.7 mmol/L (3.5-5.1) Chloride Level 100 mmol/L (98-107) Carbon Dioxide Level 32 mmol/L (21-32) Anion Gap 7 (6-14) Blood Urea Nitrogen 31 mg/dL (7-20) Creatinine 3.8 mg/dL (0.6-1.0) Estimated GFR (Cockcroft-Gault) 14.3 Glucose Level 140 mg/dL (70-99) Calcium Level 9.4 mg/dL (8.5-10.1) VERONICA FERRER MD November 14, 2016 09:45
[2016-11-14 10:05] VITALS: BP 139/67
[2016-11-14] MEDS: BISACODYL 5 MG TABLET.DR. PO PRN (10:29)
[2016-11-14] MEDS: oxyCODONE/APAP 5/325 1 TAB TABLET PO PRN ×2 (10:31→22:58)
[2016-11-14 11:05] VITALS: BP 126/51
[2016-11-14 15:00] VITALS: BP 98/56
[2016-11-14 19:00] VITALS: BP 122/62
[2016-11-14] MEDS: INSULIN DETEMIR 300 UNITS/3 ML INSULN.PEN. SQ SCH (21:00)
[2016-11-14] MEDS: METOCLOPRAMIDE 5 MG TABLET. PO SCH (21:09)
[2016-11-14] MEDS: PHENYTOIN SODIUM EXTENDED 30 MG CAPSULE. PO SCH (21:09)
[2016-11-14] MEDS ORDERED: PHEN100C4 PO (22:00)
[2016-11-14 23:00] VITALS: BP 109/50
[2016-11-15 03:02] VITALS: BP 121/63
[2016-11-15] MEDS: LEVOTHYROXINE 137 MCG TABLET PO SCH (06:21)
[2016-11-15 07:00] VITALS: BP 118/73
[2016-11-15] MEDS: INSULIN ASPART 300 UNITS/3 ML INSULN.PEN SQ SCH ×3 (08:00→17:17)
[2016-11-15] MEDS: FUROSEMIDE 20 MG TABLET PO SCH (08:22)
[2016-11-15] MEDS: PHENYTOIN SODIUM EXTENDED 100 MG CAPSULE PO SCH ×2 (08:22→11:16)
[2016-11-15] MEDS: MULTIVITAMIN with MINERAL TABLET. PO SCH (08:22)
[2016-11-15] MEDS: ASPIRIN ENTERIC COATED 81 MG TABLET.DR. PO SCH (08:23)
[2016-11-15] MEDS: CETIRIZINE HCL 10 MG TABLET. PO SCH (08:23)
[2016-11-15] MEDS: ALLOPURINOL 100 MG TABLET. PO SCH (08:23)
[2016-11-15] MEDS: PARICALCITOL 1 MCG CAPSULE PO SCH (08:23)
[2016-11-15] MEDS: hydrALAZINE 25 MG TABLET PO SCH ×2 (08:28→20:57)
[2016-11-15] MEDS: LISINOPRIL 20 MG TABLET PO SCH (08:28)
[2016-11-15] MEDS: amLODIPine BESYLATE 5 MG TABLET PO SCH (08:29)
[2016-11-15] MEDS: CARVEDILOL 12.5 MG TABLET. PO SCH ×2 (08:29→16:27)
[2016-11-15] MEDS: PANTOPRAZOLE 40 MG TABLET.DR. PO SCH (08:29)
[2016-11-15] MEDS: ACETAMINOPHEN 325 MG TABLET. PO PRN ×2 (08:29→23:17)
[2016-11-15 11:00] VITALS: BP 124/64
[2016-11-15] MEDS: BISACODYL 5 MG TABLET.DR. PO PRN (11:16)
--- NOTE | 2016-11-15 11:45 | PDOC ---
GENERAL General: vss and tmax 99.5. resting quietly but awakens and seems appropriate. Hb 9.4 and good sugars. exam stable. continue same. Problems: VITAL SIGNS Vital Signs: Vital Signs Date Time Temp Pulse Resp B/P (MAP) Pulse Ox O2 Delivery O2 Flow Rate FiO2 11/15/16 08:29 70 118/73 11/15/16 08:00 Room Air 11/15/16 07:00 97.9 16 97 97.9 11/14/16 23:58 2.0 I & O I & O Intake and Output 11/15/16 07:00 Intake Total 100 ml Balance 100 ml Intake Oral 100 ml # Voids 4 # Bowel Movements 1 ALLERGIES Allergies: Allergies Coded Allergies Type Severity Reaction Last Updated Verified Penicillins Allergy Intermediate 04/16/16 Yes Sulfa (Sulfonamide Antibiotics) Allergy Intermediate 04/16/16 Yes adhesive tape Allergy Intermediate 11/09/16 Yes codeine Allergy Intermediate 04/16/16 Yes doxycycline Allergy Intermediate 04/16/16 Yes MEDS Medications: Current Medications Medications (Trade) Dose Ordered Sig/Jie Start Time Stop Time Status Last Admin Dose Admin Acetaminophen (Tylenol) 650 mg PRN Q6HRS PRN 11/12/16 20:30 11/15/16 08:29 650 MG Allopurinol (Zyloprim) 100 mg DAILY10 11/10/16 10:00 11/15/16 08:23 100 MG Amlodipine Besylate (Norvasc) 5 mg DAILY 11/13/16 09:00 11/15/16 08:29 5 MG Aspirin (Ecotrin) 81 mg DAILY 11/10/16 09:00 11/15/16 08:23 81 MG Bisacodyl (Dulcolax Tab) 10 mg PRN DAILY PRN 11/14/16 09:45 11/15/16 11:16 10 MG Carvedilol (Coreg) 25 mg BIDWMEALS 11/10/16 08:00 11/15/16 08:29 25 MG Cefazolin Sodium 50 ml @ As Directed STK-MED ONCE 11/11/16 13:48 11/11/16 13:49 DC Cetirizine HCl (Zyrtec) 10 mg DAILY 11/10/16 09:00 11/15/16 08:23 10 MG Clindamycin Phosphate 50 ml @ 100 mls/hr 1X ONCE 11/11/16 14:15 11/11/16 14:44 DC 11/11/16 14:15 100 MLS/HR Darbepoetin Harish (Aranesp) 25 mcg WEEKLYHS 11/11/16 21:00 11/11/16 21:21 25 MCG Dextrose (Dextrose 50%-Water Syringe) 12.5 gm PRN Q15MIN PRN 11/10/16 08:45 Diphenhydramine HCl (Benadryl) 25 mg 1X PRN PRN 11/12/16 07:00 11/13/16 06:59 DC Fentanyl Citrate (Fentanyl 5ml Vial) 250 mcg 1X ONCE 11/11/16 14:00 11/11/16 14:09 DC 11/11/16 14:30 250 MCG Furosemide (Lasix) 20 mg DAILY 11/10/16 09:00 11/15/16 08:22 20 MG Heparin Sodium (Porcine) (Heparin Sodium) 4,300 unit 1X ONCE 11/11/16 14:15 11/11/16 14:16 DC 11/11/16 14:30 4,300 UNIT Heparin Sodium/ Sodium Chloride 1,000 unit 1X ONCE 11/11/16 14:15 11/11/16 14:16 DC 11/11/16 14:29 1,000 UNIT Hydralazine HCl (Apresoline) 25 mg BID 11/10/16 09:00 11/15/16 08:28 25 MG Ibuprofen (Motrin) 400 mg PRN Q6HRS PRN 11/10/16 22:00 11/11/16 11:46 DC Info (PHARMACY MONITORING -- do not chart) 1 each PRN DAILY PRN 11/14/16 08:00 UNV Insulin Aspart (Novolog) 0-7 UNITS TIDWMEALS 11/10/16 12:00 11/14/16 17:26 4 UNITS Insulin Detemir (Levemir) 65 units QHS 11/13/16 21:00 11/13/16 21:09 65 UNITS Levothyroxine Sodium (Synthroid) 137 mcg DAILY07 11/10/16 07:00 11/15/16 06:21 137 MCG Lidocaine/ Epinephrine (Xylocaine 1%-Epi 1:100,000) 20 ml 1X ONCE 11/11/16 14:00 11/11/16 14:09 DC 11/11/16 14:29 20 ML Lisinopril (Prinivil) 20 mg DAILY 11/12/16 11:30 11/15/16 08:28 20 MG Metoclopramide HCl (Reglan) 5 mg HS 11/10/16 21:00 11/14/16 21:09 5 MG Midazolam HCl (Versed) 5 mg 1X ONCE 11/11/16 14:00 11/11/16 14:09 DC 11/11/16 14:29 2 MG Multivitamins (Thera M Plus) 1 tab DAILY 11/10/16 09:00 11/15/16 08:22 1 TAB Non-Formulary Medication 10 unit TIDAC 11/10/16 07:30 UNV Oxycodone/ Acetaminophen (Percocet 5/325) 1 tab PRN Q4HRS PRN 11/09/16 22:30 11/14/16 22:58 1 TAB Pantoprazole Sodium (Protonix) 40 mg DAILYAC 11/10/16 09:00 11/15/16 08:29 40 MG Paricalcitol (Zemplar) 1 mcg DAILY 11/10/16 09:00 11/15/16 08:23 1 MCG Phenytoin Sodium (Dilantin) 30 mg HS 11/10/16 22:30 11/14/16 21:09 30 MG Sodium Chloride 1,000 ml @ 1,000 mls/hr Q1H PRN 11/14/16 08:00 11/14/16 15:00 DC Vancomycin HCl 1.25 gm/Sodium Chloride 250 ml @ 166.667 mls/hr 1X ONCE 11/09/16 18:15 11/09/16 18:26 DC Vancomycin HCl 2 gm/Sodium Chloride 500 ml @ 250 mls/hr 1X ONCE 11/09/16 19:00 11/09/16 20:59 DC 11/09/16 19:07 250 MLS/HR LAB Lab: Laboratory Tests Test 11/14/16 16:38 11/14/16 20:14 11/15/16 07:28 Glucose (Fingerstick) 211 mg/dL (70-99) 123 mg/dL (70-99) 145 mg/dL (70-99) VERONICA FERRER MD November 15, 2016 11:45
[2016-11-15 15:00] VITALS: BP 117/63
[2016-11-15 19:00] VITALS: BP 107/46
[2016-11-15] MEDS: METOCLOPRAMIDE 5 MG TABLET. PO SCH (20:57)
[2016-11-15] MEDS: PHENYTOIN SODIUM EXTENDED 30 MG CAPSULE. PO SCH (20:58)
[2016-11-15] MEDS: INSULIN DETEMIR 300 UNITS/3 ML INSULN.PEN. SQ SCH (21:05)
[2016-11-15] MEDS: oxyCODONE/APAP 5/325 1 TAB TABLET PO PRN (21:07)
[2016-11-15 23:00] VITALS: BP 133/59
[2016-11-16 03:00] VITALS: BP 117/44
[2016-11-16 05:36] LABS: CALCIUM 9.7 mg/dL (8.5-10.1); CREATININE 5.3 mg/dL (0.6-1.0); GFR 9.7
[2016-11-16] MEDS: LEVOTHYROXINE 137 MCG TABLET PO SCH ×2 (06:24→08:13)
[2016-11-16 07:00] VITALS: BP 119/42
[2016-11-16] MEDS: INSULIN ASPART 300 UNITS/3 ML INSULN.PEN SQ SCH (08:00)
[2016-11-16] MEDS: PHENYTOIN SODIUM EXTENDED 100 MG CAPSULE PO SCH ×2 (08:13→10:42)
[2016-11-16] MEDS: PANTOPRAZOLE 40 MG TABLET.DR. PO SCH (08:13)
[2016-11-16] MEDS: MULTIVITAMIN with MINERAL TABLET. PO SCH (08:14)
[2016-11-16] MEDS: hydrALAZINE 25 MG TABLET PO SCH (08:14)
[2016-11-16] MEDS: amLODIPine BESYLATE 5 MG TABLET PO SCH (08:15)
[2016-11-16] MEDS: PARICALCITOL 1 MCG CAPSULE PO SCH (08:15)
[2016-11-16] MEDS: FUROSEMIDE 20 MG TABLET PO SCH (08:16)
[2016-11-16] MEDS: ASPIRIN ENTERIC COATED 81 MG TABLET.DR. PO SCH (08:16)
[2016-11-16] MEDS: CARVEDILOL 12.5 MG TABLET. PO SCH ×2 (08:16→17:53)
[2016-11-16] MEDS: CETIRIZINE HCL 10 MG TABLET. PO SCH (08:16)
[2016-11-16] MEDS: LISINOPRIL 20 MG TABLET PO SCH (08:16)
--- NOTE | 2016-11-16 08:25 | DISCH ---
DISCHARGE FINAL DIAGNOSIS Problems Medical Problems: (1) Altered mental status Status: Acute CONDITION ON DISCHARGE: Stable SNF STAY <30 DAYS: Yes POST DISCHARGE ORDERS ACTIVITY ORDERS: Activity as tolerated WEIGHT BEARING STATUS: As tolerated DIET AFTER DISCHARGE: Renal WOUND/INCISION CARE: Ice to area for comfort, Keep wound/cast CDI FOLLOW-UP PHYSICIAN FOLLOW-UP: as scheduled JABIER LEIGH MD November 16, 2016 08:25
--- NOTE | 2016-11-16 08:28 | PDOC ---
Provider Note Provider Note [id number] JABIER LEIGH MD November 16, 2016 08:28
[2016-11-16] MEDS ORDERED: LISINOPRIL 20 MG TABLET PO SCH (09:00)
[2016-11-16] MEDS: ALLOPURINOL 100 MG TABLET. PO SCH (10:42)
[2016-11-16 11:00] VITALS: BP 113/56
--- NOTE | 2016-11-16 14:08 | PDOC ---
Dialysis Progress Note Dialysis Note Dialysis Note Seen on Hemodialysis, tolerating treatment Well Vitals on Hemodialysis: 131/58 59 afeb General Appearance: Awake: Alert Oriented x 3 Neck: No JVD or JVP Chest: CTA Yogesh Heart: S1 S2 Abdomen - Soft NTND Extremities - No Edema ESRD ARF: Dialysis as below F 180 NR 3.0 Hrs 3 K 2.5 Ca 140 Na 35 HC03 Qb 350 + Qd 500+ Heparin 0 Units Uf 1 Kgs or to dry weight as tolerated May give 25-50 gms of 25% Albumin if needed to maintain Hemodynamic stability Treatment plan reviewed and discussed with marketing traffic coordinator Vitals Vital Signs Vital Signs Date Time Temp Pulse Resp B/P (MAP) Pulse Ox O2 Delivery O2 Flow Rate FiO2 11/16/16 11:00 97.9 62 18 113/56 (75) 97 Room Air 97.9 11/16/16 07:00 2.0 Labs Last Labs Laboratory Tests Test 11/14/16 16:38 11/14/16 20:14 11/15/16 07:28 11/15/16 11:42 Glucose (Fingerstick) 211 mg/dL (70-99) 123 mg/dL (70-99) 145 mg/dL (70-99) 191 mg/dL (70-99) Test 11/15/16 16:59 11/15/16 20:53 11/16/16 04:05 11/16/16 07:31 Glucose (Fingerstick) 163 mg/dL (70-99) 213 mg/dL (70-99) 74 mg/dL (70-99) Sodium Level 139 mmol/L (136-145) Potassium Level 4.0 mmol/L (3.5-5.1) Chloride Level 102 mmol/L (98-107) Carbon Dioxide Level 25 mmol/L (21-32) Anion Gap 12 (6-14) Blood Urea Nitrogen 48 mg/dL (7-20) Creatinine 5.3 mg/dL (0.6-1.0) Estimated GFR (Cockcroft-Gault) 9.7 Glucose Level 119 mg/dL (70-99) Calcium Level 9.7 mg/dL (8.5-10.1) Test 11/16/16 10:59 Glucose (Fingerstick) 141 mg/dL (70-99) Laboratory Tests Test 11/15/16 16:59 11/15/16 20:53 11/16/16 04:05 11/16/16 07:31 Glucose (Fingerstick) 163 mg/dL (70-99) 213 mg/dL (70-99) 74 mg/dL (70-99) Sodium Level 139 mmol/L (136-145) Potassium Level 4.0 mmol/L (3.5-5.1) Chloride Level 102 mmol/L (98-107) Carbon Dioxide Level 25 mmol/L (21-32) Anion Gap 12 (6-14) Blood Urea Nitrogen 48 mg/dL (7-20) Creatinine 5.3 mg/dL (0.6-1.0) Estimated GFR (Cockcroft-Gault) 9.7 Glucose Level 119 mg/dL (70-99) Calcium Level 9.7 mg/dL (8.5-10.1) Test 11/16/16 10:59 Glucose (Fingerstick) 141 mg/dL (70-99) Assessment Assessment Problems Medical Problems: (1) Altered mental status Status: Acute Problems: Plan Plan of Care Problems Medical Problems: (1) Altered mental status Status: Acute JOSE MILLARD MD November 16, 2016 14:08
[2016-11-16] MEDS ORDERED: IV NORMAL SALINE 1000ML BAG 1,000 ML IV PRN ×2 (14:27)
[2016-11-16] MEDS ORDERED: DIALYSIS PATIENT. MC PRN ×2 (14:30)
--- NOTE | 2016-11-16 15:38 | DS ---
DATE OF DISCHARGE: 11/16/2016 HOSPITAL SUMMARY: A 66-year-old black female with end-stage renal disease, on dialysis. She has had a dialysis catheter placed about a week prior to admission. She came in with increasing fatigue, weakness, and confusion. There were no overt physical findings. This was felt to be likely due to need for undergoing dialysis. Hemoglobin was low at 9.2 and remained stable with normal white count. Chemistry profile was consistent with end-stage renal disease. Blood sugars have been stable on lower doses of insulin. Urine was clear, and blood gas was unremarkable. Urine culture and blood cultures had no growth. CT scan of the head was normal, and chest x-ray was clear. She underwent placement of a temporary dialysis catheter in Interventional Radiology on the right internal jugular line per Dr. Saunders and underwent 3 to 4 episodes of hemodialysis prior to dismissal. She and family both felt due to her weakness and difficulty getting around that she would go to longterm where she is transferred today to [facility] for continued care. FINAL DIAGNOSES: 1. End-stage renal disease, now on dialysis. 2. Altered mental status secondary to uremia. 3. Anemia secondary to end-stage renal disease. OPERATIONS AND PROCEDURES: Tunneled right internal jugular dialysis catheter placement and hemodialysis. COMPLICATIONS: None. CONSULTATIONS: Dr. Saunders ____ group. DISPOSITION: Home medications remain the same except for reduction of amlodipine to 5 mg and lisinopril to 10 mg, and further reductions based on blood pressures. Better renal function now allows better blood pressure control. Renal diet. Activity as tolerated. Prognosis is guarded. JABIER LEIGH MD DR: ALENA/wing JOB#: [id number] / [id number]
[2016-11-16 17:53] VITALS: BP 140/67
== END 2016-11-16 18:09 | DRG 682 ==
LOC: ER 15:47 → 5 NORTH 18:20
PROVIDERS: ADMIT Family Medicine; ATTEND Family Medicine
PROC: 5A1D60Z (ICD-10-PCS; 2016-11-11)
PROC: 02H633Z Insertion of Infusion Device into Right Atrium, Percutaneous Approach (ICD-10-PCS; principal; 2016-11-12)
PROC: B2141ZZ Fluoroscopy of Right Heart using Low Osmolar Contrast (ICD-10-PCS; 2016-11-12)
PROC: B244ZZZ Ultrasonography of Right Heart (ICD-10-PCS; 2016-11-12)
DX: I12.0 Hypertensive chronic kidney disease with stage 5 chronic kidney disease or end stage renal disease (principal); N18.6 End stage renal disease; G93.41 Metabolic encephalopathy; E46 Unspecified protein-calorie malnutrition; Z68.41 Body mass index [BMI] 40.0-44.9, adult; D63.1 Anemia in chronic kidney disease; E21.3 Hyperparathyroidism, unspecified; E11.22 Type 2 diabetes mellitus with diabetic chronic kidney disease; Z99.2 Dependence on renal dialysis; Z88.5 Allergy status to narcotic agent; Z88.0 Allergy status to penicillin; Z88.2 Allergy status to sulfonamides; Z88.8 Allergy status to other drugs, medicaments and biological substances; Z79.899 Other long term (current) drug therapy; Z79.82 Long term (current) use of aspirin; Z79.2 Long term (current) use of antibiotics
CPT/HCPCS: 36415; 36558; 36600; 70450; 71010; 76937; 77001; 80048; 80053; 80076; 81001; 82140; 82805; 82947; 85027; 85610; 86704; 86706; 87040; 87086; 87340; 87341; 93005; 96374; A4215; C1750; C1892; J0881; J1815; J2250; J3010; J3370; J3490; J7040; J8597; 97116; 97530; 99285-25

== ENCOUNTER → 2017-04-16 | Outpatient (CLI) | payer MEDICARE, OTHER ==
[~2017-04-16] MED LIST changes: +HYDR-2868 PO; +INSU100C4 SQ; +INSU100I11 SQ; +INSU100I13 SQ; +LEVO137T3 PO; +METO10TA81 PO; +MULT-208 PO; +OMEP20CA9 PO; -OMEP20TA PO; +OMEP20TA8 PO; +OXYC-323 PO; +PARI1CAP PO; +PHEN100C4 PO
--- NOTE | 2017-04-16 13:29 | KCIC ---
Bone mineral density study dated 04/16/2017. Indication: Postmenopausal screening. Findings: Lower lumbar spine: BMD (g/cm2): Total L1-L4.......... 1.174. . T-Score: Total L1-L4.................... 1.2. Z-Score: Total L1-L4 ................... 2.5. Left Hip: BMD (g/cm2): Total .......... 0.840. . T-Score: Total .................... -0.8. Z-Score: Total ................... -0.1. World Health Organization criteria for BMD interpretation classify patients as Normal (T-score at or above -1.0), Osteopenic (T-score between -1.0 and -2.5), or Osteoporotic (T-score at or below -2.5). Impression: Bone mineral density values are within the range of normal. Electronically signed by: Campos Fairbanks MD (04/16/2017 1:25 PM) [facility]
== END | disposition home or self-care (01) ==
LOC: KCIC DEXA 10:41
PROVIDERS: ATTEND Family Medicine
DX: Z13.820 Encounter for screening for osteoporosis (principal); Z78.0 Asymptomatic menopausal state
CPT/HCPCS: 77080

== ENCOUNTER 2018-02-28 06:24 | Inpatient (IN) | payer MEDICARE, OTHER ==
[2018-02-28] VITALS (9 sets, daily range): BP systolic 154–203; BP diastolic 61–77
[~2018-02-28] VITALS: Ht 172.7 cm; Wt 130.6 kg
[~2018-02-28 06:24] MED LIST changes: +BUPIVACAINE 0.25% 50 ML VIAL. ONE; +BUPIVACAINE-EPI 0.5%-1:200000 50 ML VIAL. ONE; +CRESTOR40 MG PO; +DILANTIN PO; +DOXA4TAB2 PO; +FAMO1TAB3 PO; +FOLI0.8T3 PO
[2018-02-28] MEDS ORDERED: IV RINGERS,LACTATED 1000ML 1,000 ML IV SCH (07:00)
[2018-02-28] MEDS ORDERED: ONDANSETRON PF 4 MG/2 ML VIAL. IV PRN ×2 (07:00→10:30)
[2018-02-28] MEDS ORDERED: fentaNYL PF VIAL 100 MCG/2 ML VIAL IV PRN ×2 (07:00)
[2018-02-28] MEDS ORDERED: LIDOCAINE 1% PF 2 ML VIAL. ID PRN (07:00)
[2018-02-28] MEDS ORDERED: HEPARIN SODIUM 5,000 UNIT in IV NORMAL SALINE 500ML BAG 500 ML IRR ONE (07:07)
[2018-02-28] MEDS ORDERED: ROCURONIUM 50 MG/5 ML VIAL. ONE (07:25)
[2018-02-28] MEDS ORDERED: LIDOCAINE 2% PF Vial for OR 5 ML VIAL. ONE (07:25)
[2018-02-28] MEDS ORDERED: PROPOFOL 20 ML IV ONE ×2 (07:25→09:47)
[2018-02-28] MEDS ORDERED: fentaNYL PF VIAL 100 MCG/2 ML VIAL ONE ×2 (07:26→11:02)
[2018-02-28] MEDS ORDERED: MIDAZOLAM HCL/PF 2 MG/2 ML VIAL. ONE (07:27)
[2018-02-28] MEDS ORDERED: DEXAMETHASONE SOD PHOS 20 MG/5 ML VIAL. ONE (08:53)
[2018-02-28] MEDS ORDERED: ONDANSETRON PF 4 MG/2 ML VIAL. ONE (08:53)
[2018-02-28] MEDS ORDERED: GLYCOPYRROLATE 1 MG/5 ML VIAL. ONE (08:54)
[2018-02-28] MEDS ORDERED: NEOSTIGMINE METHYLSULFATE 5 MG/5 ML SYRINGE. ONE (08:54)
[2018-02-28] MEDS ORDERED: FAMOTIDINE 20 MG/2 ML VIAL ONE (08:57)
[2018-02-28] MEDS ORDERED: PHENYLEPHRINE in 0.9% NACL PF 1 MG/10 ML SYRINGE. IV ONE (09:04)
[2018-02-28] MEDS ORDERED: DESFLURANE 61 TO 120 MINUTES IH ONE (09:08)
--- NOTE | 2018-02-28 10:26 | PDOC ---
BRIEF OPERATIVE NOTE Date: Feb 28, 2018 Pre-Op Diagnosis ESRD on HD obesity DM Post-Op Diagnosis same Procedure Performed l/s placement PD catheter JACKI primary repair of umbilical and supraumbilical hernias Surgeon Lalit Grinder Operator Surface Tool Janice Galvez Anesthesia Type: General Blood Loss 25cc IV Fluid 550cc Urine Output 100cc Specimens Obtained hernia sack with incarcerated contents Findings omental adhesions from previous open rylan, umbilical and supraumbilical hernias with incarcerated omentum Complications none Operative Note Wk # [id number] DOREEN AVERY MD Feb 28, 2018 10:26
[2018-02-28] MEDS ORDERED: diphenhydrAMINE 50 MG/ML VIAL IV PRN (10:30)
[2018-02-28] MEDS ORDERED: diphenhydrAMINE HCL 25 MG CAPSULE PO PRN (10:30)
[2018-02-28] MEDS ORDERED: 0.9 % SODIUM CHLORIDE 10 ML DISP.SYRIN. IV PRN (10:30)
[2018-02-28] MEDS ORDERED: oxyCODONE/APAP 5/325 1 TAB TABLET PO PRN ×2 (10:30)
[2018-02-28] MEDS ORDERED: MORPHINE SULFATE 10 MG/ML VIAL. IV PRN (10:30)
--- NOTE | 2018-02-28 10:31 | OP ---
DATE OF SURGERY: PREOPERATIVE DIAGNOSES: End-stage renal disease and umbilical hernia. Currently, on hemodialysis. POSTOPERATIVE DIAGNOSES: End-stage renal disease and umbilical hernia, currently on hemodialysis. PROCEDURE: Laparoscopic placement of peritoneal dialysis catheter, lysis of adhesions, primary repair of supraumbilical and umbilical hernias. SURGEON: Jignesh Avery MD. ETL DATA ARCHITECT: Janice Galvez. ANESTHESIA: General endotracheal. ESTIMATED BLOOD LOSS: 25. INTRAVENOUS FLUIDS: 550. INDICATIONS: The patient is an obese 67-year-old lady with end-stage renal disease, on hemodialysis, requesting peritoneal dialysis catheter placed. DESCRIPTION OF PROCEDURE: The patient was brought to the operating suite, given a general endotracheal anesthetic, Hillman catheter placement and drainage. The abdomen was prepped and draped in usual sterile fashion. An infraumbilical incision was infiltrated with local anesthetic, incised and a 5 mm Visiport used to safely gain access into the abdominal cavity. Pneumoperitoneum established. Camera inserted. Inspection carried out. This showed extensive omental adhesions in the upper abdomen from previous open cholecystectomy. In light of this, a suprapubic and left upper quadrant ports were placed under direct vision, and this allowed careful dissection of the omental adhesions away from the abdominal wall, clearing a space in the abdominal cavity for adequate fluid. Care was taken during the dissection to avoid the bowel. Under direct vision, an incision was made for the catheter insertion site and a Cook needle advanced into the abdominal cavity. Needle was removed. The dilators were passed, and the catheter was then placed into the pelvis and the Dacron cuff seated just above the peritoneum. Excess catheter was then tunneled subcutaneously to the access site. We then addressed the hernia by infiltrating the skin with local, incising the umbilicus and mobilizing the hernia sac and incarcerated contents. This was delivered. The fascial rent was then closed in running fashion with looped #1 PDS tied in the middle. Subcutaneous approximated with 3-0 Vicryl. The catheter was then flushed with 500 mL of normal saline, which are readily accepted. Drained a similar amount. The catheter was then "packed" with heparinized saline. Skin incisions closed with subcuticular 4-0 Monocryl. Steri-Strips and sterile dressings applied. The patient awakened from her anesthetic and taken to the recovery room in satisfactory condition after removing her Hillman catheter. JIGNESH AVERY MD DR: DARLYN/wing JOB#: [id number] / [id number] timbo [address] DR
[2018-02-28] MEDS ORDERED: IV 1/2 NORMAL SALINE 1,000 ML IV SCH (11:00)
[2018-02-28] MEDS ORDERED: hydrALAZINE 20 MG/ML VIAL. ONE (11:27)
[2018-02-28] MEDS ORDERED: hydrALAZINE 20 MG/ML VIAL. IVP PRN (11:45)
[2018-02-28] MEDS ORDERED: HYDROcodone/APAP 5/325MG 1 TAB TABLET PO PRN ×2 (14:00)
--- NOTE | 2018-02-28 14:53 | DISCH ---
DISCHARGE INSTRUCTIONS Condition on Discharge Condition on Discharge: Stable Activity After Discharge Activity Instructions for Disc: Activity as tolerated Other activity instructions: ok to shower Lifting Instructions after Dis: No heavy lifting, Do not lift >10 pounds Exercise Instruction after Dis: Progress as tolerated Driving Instructions after Dis: Do not drive today Weight Bearing Status after Di: No restrictions Diet after Discharge Diet after Discharge: Renal Dialysis Liquid Texture: Thin Liquid Wound Incision Care Wound/Incision Care: Keep wound/cast CDI, Reinforce dressing PRN Contacting the DRAlberto after DC Call your doctor for: Concerns you may have Follow-Up Follow up with: Dr Cohn 1 week DELORIS MADRID MARRIAGE AND FAMILY COUNSELOR Feb 28, 2018 14:53
[2018-02-28] MEDS ORDERED: HYDR-2758 PO (14:55)
[2018-02-28] MEDS ORDERED: CALCIUM CARBONATE 500 MG TAB.CHEW PO SCH (16:30)
[2018-02-28] MEDS ORDERED: CARVEDILOL 12.5 MG TABLET. PO SCH (17:00)
[2018-02-28] MEDS ORDERED: INSULIN LISPRO 300 UNITS/3 ML INSULN.PEN. SQ SCH (17:00)
[2018-02-28] MEDS ORDERED: PHENYTOIN SODIUM EXTENDED 30 MG CAPSULE. PO SCH (18:00)
[2018-02-28] MEDS ORDERED: PHENYTOIN SODIUM EXTENDED 100 MG CAPSULE PO SCH (18:00)
[2018-02-28] MEDS ORDERED: PHENYTOIN SODIUM PO SCH (18:00)
[2018-02-28] MEDS ORDERED: FOLIC/VIT B COMP W-C (RENAL) TABLET. PO SCH (18:00)
[2018-02-28] MEDS ORDERED: DOCUSATE SODIUM 100 MG CAPSULE. PO SCH (21:00)
[2018-02-28] MEDS ORDERED: INSULIN GLARGINE 300 UNITS/3 ML INSULN.PEN. SQ SCH (21:00)
[2018-02-28] MEDS ORDERED: ATORVASTATIN CALCIUM 40 MG TABLET. PO SCH (21:00)
[2018-03-01] MEDS ORDERED: LEVOTHYROXINE 137 MCG TABLET PO SCH (06:00)
[2018-03-01] MEDS ORDERED: HEPARIN PF for SUB-Q USE 5,000 UNIT/0.5 ML VIAL. SQ SCH (06:00)
[2018-03-01] MEDS ORDERED: PANTOPRAZOLE 40 MG TABLET.DR. PO SCH (07:30)
[2018-03-01] MEDS ORDERED: ASPIRIN ENTERIC COATED 81 MG TABLET.DR. PO SCH (09:00)
[2018-03-01] MEDS ORDERED: DOXAZOSIN MESYLATE 4 MG TABLET. PO SCH (09:00)
[2018-03-01] MEDS ORDERED: FAMOTIDINE 20 MG TABLET. PO SCH (09:00)
[2018-03-01] MEDS ORDERED: amLODIPine BESYLATE 10 MG TABLET PO SCH (09:00)
[2018-03-01] MEDS ORDERED: PHENYTOIN SODIUM EXTENDED 100 MG CAPSULE PO SCH (09:00)
[2018-03-01] MEDS ORDERED: ALLOPURINOL 100 MG TABLET. PO SCH (09:00)
[2018-03-01] MEDS ORDERED: LOSARTAN POTASSIUM 50 MG TABLET. PO SCH (09:00)
--- NOTE | 2018-03-02 10:14 | PATHOLOGY ---
[facility] Accession Number: [id number] . 01 Material submitted: . SUPRAUMBILICAL HERNIA SAC AND INCARCERATED CONTENTS . 01 Clinical history: . None provided . 02 Diagnosis: Segment of skin and subcutaneous tissue and attached focal mesothelial-lined fibromembranous and adipose tissue, supraumbilical hernia repair: - Hernia sac and contents with focal scarring of abdominal wall. LB/03/01/2018 . 02 Comment: There is no evidence of malignancy. (JPM/db; 03/01/18) . 02 Electronically signed: . Jerad Arana MD, Pathologist NPI- [id number] . 01 Gross description: . The specimen is received in formalin, labeled "Lalit, Ivelisse and supra umbilical hernia sac and incarcerated contents", is an unoriented ellipse of wallace skin, measuring 7.5 x 2.0 cm, with underlying attached yellow lobulated adipose tissue partially covered by a mendiola-white membrane 11.0 x 5.0 x 4.5 cm. The skin surface has an umblicated focus. Sectioning of the underlying soft tissue shows yellow lobulated cut surface with mendiola-white fibrous tissue. . Insecticide Supervisor sections are submitted as follows: A1. Skin and underlying soft tissue A2-A3. Mendiola-white fibrous and yellow soft tissue (SWS; 02/28/2018) SHS/SHS . 02 Pathologist provided ICD-10: K43.9 . 02 CPT . 677542 Performed at: 01 [facility] [address], [place] [id number] MD Amadou Solorzano MD Phone: [phone] Performed at: 02 [facility] [address], [place] [id number] MD Jerad Arana MD Phone: [phone]
== END 2018-02-28 17:57 | disposition home or self-care (01) | DRG 335 ==
LOC: SURG 06:24 → 4 NORTH 12:36
PROVIDERS: ADMIT Surgery; ATTEND Surgery
PROC: 0WQF4ZZ Repair Abdominal Wall, Percutaneous Endoscopic Approach (ICD-10-PCS; 2018-02-28)
PROC: 0WHG43Z Insertion of Infusion Device into Peritoneal Cavity, Percutaneous Endoscopic Approach (ICD-10-PCS; 2018-02-28)
PROC: 3E1M39Z Irrigation of Peritoneal Cavity using Dialysate, Percutaneous Approach (ICD-10-PCS; 2018-02-28)
PROC: 0WHG43Z Insertion of Infusion Device into Peritoneal Cavity, Percutaneous Endoscopic Approach (ICD-10-PCS; principal; 2018-02-28 08:00)
PROC: 0DNU4ZZ Release Omentum, Percutaneous Endoscopic Approach (ICD-10-PCS; 2018-02-28 08:00)
DX: K42.9 Umbilical hernia without obstruction or gangrene (principal); N18.6 End stage renal disease; Z68.41 Body mass index [BMI] 40.0-44.9, adult; E11.22 Type 2 diabetes mellitus with diabetic chronic kidney disease; E66.9 Obesity, unspecified; K66.0 Peritoneal adhesions (postprocedural) (postinfection); Z99.2 Dependence on renal dialysis
CPT/HCPCS: 82962; A7015; C1892; J0360; J1100; J1644; J1815; J1956; J2001; J2250; J2370; J2405; J2704; J2710; J3010; J3490; J7030; J7040; J7120; S0028

== ENCOUNTER 2018-03-24 12:29 | Outpatient (CLI) | payer MEDICARE, OTHER ==
[2018-02-28 15:14] VITALS: BP 172/61
[~2018-03-24 12:29] MED LIST changes: -AMLO10TA2 PO; +AMLO10TA6 PO; -BUPIVACAINE 0.25% 50 ML VIAL. ONE; -BUPIVACAINE-EPI 0.5%-1:200000 50 ML VIAL. ONE; +HYDR-2758 PO; -LOSA100T6 PO; +LOSA100T7 PO
[2018-03-24] MEDS ORDERED: IOHEXOL 300 MG/ML 100ML VIAL. ONE (13:30)
[2018-03-24] MEDS ORDERED: CONTRAST GIVEN. MC PRN (14:45)
[2018-03-24] MEDS ORDERED: IOHEXOL 300 MG/ML 100ML VIAL. IJ ONE (14:45)
--- NOTE | 2018-03-24 15:34 | PDOC ---
BRIEF OPERATIVE NOTE Pre-Op Diagnosis Malfunctioning PD Catheter Post-Op Diagnosis same Procedure Performed PD Catheter manipulation Surgeon Amy Anesthesia Type: Conscious Sedation Findings Anterior lay of the PD catheter tip with poor flow which is significantly improved after reposition of the tip Complications No immediate DAX RUANO MD Mar 24, 2018 15:34
--- NOTE | 2018-03-24 15:42 | RAD ---
Procedure: Fluoroscopic guided peritoneal dialysis catheter injection and manipulation Clinical Indication: 67-year-old with 3-week-old arterial dialysis catheter which fails to aspirate Sedation: None Antibiotics: Antibiotic was administered intravenously within 1 hour of the procedure start time. Exposure: Kerma-Area Product: 34459.3 uGym2 Contrast: 10 cc of Isovue-300 contrast media Sterility: All elements of maximal sterile barrier technique including the use of a cap, mask, sterile gown, sterile gloves, large sterile sheet, appropriate hand hygiene, and 2% chlorhexidine for cutaneous antisepsis (or acceptable alternative antiseptic per current guidelines) were followed for this procedure. Consent: The procedure was explained in its entirety to the patient or the patients designated sales representative church furniture by a member of the treatment team, including a discussion of the risks, benefits and commonly accepted alternatives to the procedure, as well as the expected consequences of no therapy whatsoever. Discussion of the risks included, but was not limited to, those that are most frequent and those that are rare but possibly severe or life-threatening, as well as the possibility of unforeseen complications. Technique and Findings: Following informed consent, the patient was prepped and draped in usual sterile fashion. Fluoroscopy over the abdomen revealed an intact peritoneal dialysis catheter which was seen to have an anterior lay. The catheter was easily injected with saline, but failed aspirated. Contrast was injected demonstrating patency of the entirety of the catheter, with extravasation into the peritoneum. A stiff Glidewire and 5 Upper Sorbian angled catheter were then advanced coaxially through the catheter and used to manipulate the distal pigtail into a different location within the right hemipelvis. This resulted in alevism of easy aspiration. The catheter wire were then removed. Complications: No immediate Impression: 1. Successful manipulation of the distal tip of the peritoneal dialysis catheter resulting in alevism of flow. The peritoneal dialysis catheter is suitable for use.
== END 2018-03-24 16:10 | disposition home or self-care (01) ==
LOC: INTRAD 12:29
PROVIDERS: ATTEND Internal Medicine Nephrology
DX: T85.898A Other specified complication of other internal prosthetic devices, implants and grafts, initial encounter (principal); Z88.0 Allergy status to penicillin; Z88.2 Allergy status to sulfonamides; Z88.6 Allergy status to analgesic agent; Z88.8 Allergy status to other drugs, medicaments and biological substances; Y83.8 Other surgical procedures as the cause of abnormal reaction of the patient, or of later complication, without mention of misadventure at the time of the procedure; Y92.89 Other specified places as the place of occurrence of the external cause
CPT/HCPCS: 49400; 74190; C1769; J1956; Q9967